=== PATIENT | female | born 1955 | race Caucasian/White ===

== ENCOUNTER 2018-08-06 11:20 | Outpatient (CLI) | payer BC, SELFPAY ==
--- NOTE | 2018-08-06 11:49 | DI.MAMMO_ITS ---
SYMPTOM/DIAGNOSIS: SCREENING, Z12.31 MAMMOGRAMS: Mammograms were interpreted according to the usual protocol including computer analysis with CAD system, tomosynthesis and C view imaging. Comparison is made with prior examinations. Breast density, category B. There has been interval decrease in size of the cyst seen in the retroareolar region of the left breast. The lesion measures 1.5 cm. in maximum diameter compared with 3.3 cm. on the prior examination. No suspicious masses or microcalcifications are seen. The skin and axilla are unremarkable. IMPRESSION: No evidence for malignancy. Yearly mammography is recommended. Category 2B. MQSA ASSESSMENT OF FINDINGS: Negative with benign findings. Category 2. Patient will receive a letter notifying them of these results. BI-RADS category B. There are scattered areas of fibroglandular density.
[2018-08-06 12:15] LABS: HCT 38.8 % (36.0-46.0); HGB 12.9 g/dL (12.0-15.5); Mean Corp. HGB Concentration 33.2 g/dL (32.0-36.0); Mean Corpuscular Hemoglobin 28.7 pg (27.0-33.0); Mean Corpuscular Volume 86.2 fL (80-95); Mean Platelet Volume 12.8 fL (8.0-11.0); Platelet Count 179 x1000/uL (130-400); RBC Distribution Width 13.2 % (11.7-14.6); White Blood Cell Count 5.78 k/cumm (4.4-10.8)
[2018-08-06 13:11] LABS: ALT 20 U/L (12-78); AST 20 U/L (15-37); Alkaline Phosphatase 57 U/L (46-116); Anion Gap 7.6 mmol/L (3-11); BUN 15 mg/dL (7-18); Bilirubin, Total 0.5 mg/dL (0.2-1.0); CO2 29.4 mmol/L (21.0-32.0); CREATININE 0.58 mg/dL (0.55-1.02); Calcium 9.1 mg/dL (8.5-10.1); Chloride 103 mmol/L (98-107); Cholesterol 234 mg/dL (50-200); Glucose 104 mg/dL (70-100); HDL Cholesterol 100 mg/dL (40-60); LDL CHOLESTEROL 121 mg/dL (<100); Sodium 140 mmol/L (136-145); Total Protein 7.1 g/dL (6.4-8.2); Triglyceride 49 mg/dL (30-150)
[2018-08-06 13:33] LABS: Vitamin D 25 Total 47.4 ng/ml (30-100)
[2018-08-07 09:52] LABS: Hepatitis C Ab w Rflx HCV PCR Negative (NEGAT)
[2018-08-07 11:26] LABS: HIV-1/2 Ag & Ab Screen Negative (NEGAT)
[2018-08-07 14:14] LABS: Parathyroid Hormone,Intact 30 pg/ml (19-88)
== END 2018-08-06 11:40 ==
PROVIDERS: PCP Internal Medicine; Visit Provider Internal Medicine
DX: Z12.31 Encounter for screening mammogram for malignant neoplasm of breast (principal); N60.02 Solitary cyst of left breast; M81.0 Age-related osteoporosis without current pathological fracture; Z11.4 Encounter for screening for human immunodeficiency virus [HIV]; Z11.59 Encounter for screening for other viral diseases; Z01.84 Encounter for antibody response examination; I10 Essential (primary) hypertension
CPT/HCPCS: 36415; 77063; 77067; 80053; 80061; 82306; 83721; 85027; 86803; 87389; 83970

== ENCOUNTER 2019-08-28 01:27 | Outpatient (CLI) | payer BC, SELFPAY ==
--- NOTE | 2019-08-28 08:37 | DI.MAMMO_ITS ---
EXAM: MAMMO SCREENING CLINICAL HISTORY: screening, Z12.39. TECHNIQUE: Mammograms were interpreted according to the usual protocol including computer analysis w [employer] CAD system, tomosynthesis and C-view imaging. FINDINGS: The breast tissue is of moderate radiodensity. There is no evidence of a mass. There are no suspiciou s calcifications and there has been no significant interval change when compared with prior images. Patient is status post breast biopsy, scarring is identified. IMPRESSION: No evidence of malignancy, category 2, yearly screening mammography is recommended. BI-RADS category B. BI-RADS Cat 2 - Benign Findings. Breast Density - Category B - Scattered areas of fibroglandular density.
== END 2019-08-28 01:47 ==
PROVIDERS: PCP Internal Medicine; Visit Provider Internal Medicine
DX: Z12.31 Encounter for screening mammogram for malignant neoplasm of breast (principal); Z98.890 Other specified postprocedural states
CPT/HCPCS: 77063; 77067

== ENCOUNTER 2020-07-21 13:49 | Outpatient (REF) | payer BC, SELFPAY ==
[2020-07-21 19:09] LABS: BUN 14 mg/dL (7-18); CREATININE 0.48 mg/dL (0.55-1.02); Calcium 8.9 mg/dL (8.5-10.1); Calculated LDL 111 mg/dL (<100); Chloride 106 mmol/L (98-107); Cholesterol 217 mg/dL (<200); Glucose 93 mg/dL (74-106); HDL Cholesterol 101 mg/dL (40-60); Potassium 4.1 mmol/L (3.5-5.1); Sodium 142 mmol/L (136-145); Triglyceride 28 mg/dL (<150)
== END 2020-07-21 14:09 ==
LOC: LBN 13:49
PROVIDERS: PCP Internal Medicine; Visit Provider Internal Medicine
DX: E78.00 Pure hypercholesterolemia, unspecified (principal); I10 Essential (primary) hypertension
CPT/HCPCS: 80048; 80061

== ENCOUNTER 2021-05-27 02:03 | Outpatient (CLI) | payer BC, SELFPAY ==
--- NOTE | 2021-05-27 08:00 | DI.CT_ITS ---
Exam(s) CT HEAD WO EXAM: CT HEAD WO CLINICAL HISTORY: assess head injury,CLOSED HEAD INJURY,S09.90XA. TECHNIQUE: Imaging Protocol: Axial computed tomography images with coronal and sagittal reformatted images were created and reviewed COMPARISON: No exams were available for comparison FINDINGS: Ventricles and Extra axial spaces: Normal in size and morphology for the patient's age. Hemorrhage: None. Cerebral parenchyma: Normal. Midline shift: None. Brainstem/Cerebellum: Normal. Calvarium: Normal. Visualized Paranasal sinuses/Mastoids: Clear. Soft Tissues: Unremarkable. IMPRESSION: No acute intracranial process. RADIATION DOSE DELIVERED: 607.29mGy.cm Total DLP DATA REPOSITORY: All CT scans at this facility are submitted to the National Radiology Data Registry (NRDR) Dose Index Registry (DIR) with the [employer] (ACR). RADIATION OPTIMIZATION: All CT scans at this facility use at least one of these dose optimization te chniques: automated exposure control; mA and/or kV adjustment per patient size (includes targeted exa ms where dose is matched to clinical indication); or iterative reconstruction.
--- NOTE | 2021-05-27 08:07 | DI.RAD_ITS ---
Exam(s) XR CERVICAL SPINE COMP 4-5V EXAM: XR CERVICAL SPINE COMP 4-5V CLINICAL HISTORY: assess neck injury; r/o neck fracture,CLOSED HEAD INJURY,S09.90XA. TECHNIQUE: 2D digital imaging was performed. COMPARISON: No exams were available for comparison FINDINGS: BONES: No fracture or destructive lesion. Vertebral bodies are unremarkable. DISKS: There is moderate narrowing of the C5-6 disc space and mild narrowing of the C6-7 disc space. Endplate osteophytes are seen at these levels. There is right-sided neural foraminal narrowing. Th e remaining intervertebral disc spaces are maintained. ALIGNMENT: Cervical spinal alignment is within normal limits. The odontoid and atlantoaxial articulat ions are normal. SOFT TISSUE: Normal. The lung apices are clear. IMPRESSION: No evidence of fracture. Degenerative disc changes C5-6 and C6-7. DATA REPOSITORY: RADIATION DOSE DELIVERED:
== END 2021-05-27 02:23 ==
PROVIDERS: PCP Internal Medicine; Visit Provider Student in an Organized Health Care Education/Training Program
DX: S09.90XA Unspecified injury of head, initial encounter (principal); M47.812 Spondylosis without myelopathy or radiculopathy, cervical region; X58.XXXA Exposure to other specified factors, initial encounter
CPT/HCPCS: 70450; 72050

== ENCOUNTER 2021-06-29 03:42 | Outpatient (CLI) | payer BC, SELFPAY ==
[2021-06-29 15:15] LABS: Anion Gap 10.4 mmol/L (3-11); BUN 15 mg/dL (7-18); CO2 27.6 mmol/L (21.0-32.0); CREATININE 0.8 mg/dL (0.55-1.02); Calcium 8.9 mg/dL (8.5-10.1); Calculated LDL 109 mg/dL (<100); Chloride 104 mmol/L (98-107); Cholesterol 217 mg/dL (<200); Glucose 134 mg/dL (74-106); HDL Cholesterol 96 mg/dL (40-60); Sodium 142 mmol/L (136-145); Triglyceride 62 mg/dL (<150)
== END 2021-06-29 03:43 | disposition home or self-care (01) ==
PROVIDERS: PCP Internal Medicine; Visit Provider Internal Medicine
DX: E78.00 Pure hypercholesterolemia, unspecified (principal); I10 Essential (primary) hypertension
CPT/HCPCS: 36415; 80048; 80061

== ENCOUNTER → 2022-07-08 00:22 | Outpatient (CLI) | payer MEDICARE, OTHER, SELFPAY ==
--- NOTE | 2022-07-08 11:27 | DI.MAMMO_ITS ---
Exam(s) MAMMO SCREENING EXAM: MAMMO SCREENING CLINICAL HISTORY: screening,z12.39 TECHNIQUE: Mammograms were interpreted according to the usual protocol including computer analysis w [employer] CAD system, tomosynthesis and C-view imaging. COMPARISON: 2017 through 2019 FINDINGS: The breasts are composed of scattered fibroglandular densities, Breast Density category B. There has been further decrease in size of the previously noted nodule in the subareolar left breast. Patient states previous negative biopsy. No new masses or suspicious calcifications are seen in ei ther breast. No skin thickening or abnormal axillary lymph nodes are seen. There has been no significant change from prior exams. IMPRESSION: BI-RADS Cat 2 - Benign Findings Yearly screening mammography is recommended. Breast Density - Category B, scattered fibroglandular densities. A negative radiographic report should not delay biopsy if a dominant or clinically suspicious mass is present. Up to ten percent of cancers are not identified on mammography. A negative report may reinforce clinical impression. Adenosis and dense breasts may obscure an underlying neoplasm. False positive reports average 6 to 10%. Patient will receive a letter notifying them of these results.
== END ==
PROVIDERS: PCP Internal Medicine; Visit Provider Internal Medicine
DX: Z12.31 Encounter for screening mammogram for malignant neoplasm of breast
CPT/HCPCS: 77063; 77067

== ENCOUNTER → 2022-08-19 00:53 | Outpatient (CLI) | payer MEDICARE, OTHER, SELFPAY ==
--- NOTE | 2022-08-19 10:53 | DI.DEXA_ITS ---
Exam(s) XR DEXA BONE DENSITY W/WO BOB EXAM: XR DEXA BONE DENSITY W/WO BOB CLINICAL HISTORY: F/U osteoporosis,M81.0 TECHNIQUE: COMPARISON: No exams were available for comparison FINDINGS: DEXA scan was performed according to the usual protocol. Please see the accompanying data sheets. F indings for left hip scanning are T-score -2.1 with left femoral neck T-score -1.6. Prior examinatio n of February 2018 showed left hip T-score -2.1. Findings for lumbar spine scanning are T-score -3.0. Prior examination of 2018 showed lumbar T-score -2.7. Left forearm scanning shows T-score -1.1, prior examination of 2018 showed forearm T-score -1.5. IMPRESSION: Measurements are consistent with osteoporosis according to the WHO criteria. The lateral vertebral s canogram shows no evidence of a vertebral compression fracture. RADIATION DOSE DELIVERED: Total DLP
== END ==
PROVIDERS: PCP Internal Medicine; Visit Provider Internal Medicine
DX: M81.0 Age-related osteoporosis without current pathological fracture (principal); Z13.820 Encounter for screening for osteoporosis
CPT/HCPCS: 77080

== ENCOUNTER 2022-09-11 20:01 | Emergency (ER) | payer MEDICARE, OTHER, SELFPAY ==
--- NOTE | 2022-09-11 20:00 | DI.RAD_ITS ---
Exam(s) XR KNEE RT 3V AP,LAT,LAVON EXAM: XR KNEE RT 3V AP,LAT,LAVON CLINICAL HISTORY: Fall, R/O fracture. TECHNIQUE: 2D digital imaging was performed. Three views. COMPARISON: No exams were available for comparison FINDINGS: BONES: A minimally displaced fracture at the inferior pole of the patella. No additional fractures i dentified. No bony destructive lesion is seen. JOINTS: Joint spaces are maintained. A joint effusion is seen. SOFT TISSUE: Anterior soft tissue swelling. IMPRESSION: Nondisplaced fracture at the inferior patella. DATA REPOSITORY: RADIATION DOSE DELIVERED:
[2022-09-11 20:05] VITALS: BP 146/90; PULSE 70; RESP 18; TEMP 36.1; O2SAT 98
--- NOTE | 2022-09-11 20:09 | ED.GENADUL_ITS ---
Discharge Plan Disposition Patient Disposition: HOME Condition: Stable Discharge Details Clinical Impression: Closed fracture of right patella Primary Care Provider: Monica Olivera ED Provider: Tawana Borden Home Meds and New Rx's Prescriptions: Continued cholecalciferol (vitamin D3) 2,000 unit capsule 2,000 unit PO DAILY valsartan-hydrochlorothiazide 80-12.5 mg tablet 1 tab PO DAILY Qty: 90 3RF ibuprofen 200 MG tablet 3 tab PO PRN triamcinolone acetonide 0.1 % ointment 1 applic topical BID PRN (Reason: eczema) Qty: 80 0RF Rx Instructions: Apply to hands BID prn eczema Caltrate 600-D Plus Minerals 1 EACH tablet 1 ea PO DAILY Discharge Instructions Instructions: Patellar Fracture (ED) Additional Instructions: The x-ray shows a fracture to your patella or your kneecap. Please wear the knee immobilizer until your follow-up appointment with orthopedics. Use the crutches as needed. You may bear weight as tolerated. Please follow-up with orthopedics within the next 1 to 2 weeks their office should call you for a follow-up appointment. If you do not hear from them in the next few days please call. Rest, ice, compression and elevation. Keep the knee immobilizer on while awake and while up and moving around. He may take it off when resting. Please take Tylenol or Ibuprofen with food every 4-6 hours as needed for pain and swelling. Referrals: Saw Bello MD [ [facility] STAFF PHYSICIAN] - 1 week Medical Decision Making 67-year-old female presents to the ER with a chief complaint of mechanical fall and right knee injury just prior to arrival. Patient states that she was outside and tripped on her brick walkway falling forward landing on her right knee. She has a superficial abrasion noted to her right knee, she is able to bend actively move her leg however she does have some pain with weightbearing. X-ray ordered of right knee, ice pack and Tylenol. I did inquire about patient's right hip but she reports it is not hurting to limit further imaging at this time. X-rays show a inferior fracture of patella minimally displaced. I did discuss this with the orthopedic surgeon on-call Dr. Bello recommends knee immobilizer and follow-up in the clinic. Patient was placed in a knee immobilizer and given crutches. I did discuss home care and follow-up. She verbalizes understanding. This text was generated using [employer] dictation system, please disregard any oddities of phrase or misspellings. Imaging Data Radiologic Study: Imaging: X-Ray Radiologist's impression: Imaging protocol: Radiologic exam of the Right knee. Views: 3 views. COMPARISON: No relevant prior studies available. FINDINGS: Bones/joints: Inferior patellar fracture without displacement. Degenerative changes in the superior portion of the patella. Small joint effusion suspected Soft tissues: Prepatellar swelling IMPRESSION: Inferior patellar fracture without displacement HPI General Mode of arrival: ambulatory . Date/Time Provider Initiated Documentation: 09/11/22 20:01 . Limitations to Documentation: no limitations . Information obtained by: patient, family, RN notes reviewed and old records reviewed . HPI Narrative: 67-year-old female presents to the ER with a chief complaint of mechanical fall and right knee injury just prior to arrival. Patient states that she was outside and tripped on her brick walkway falling forward landing on her right knee. She has a superficial abrasion noted to her right knee, she is able to bend actively move her leg however she does have some pain with weightbearing. She reports that she has continued nausea after the fall. She denies hitting her head no neck pain no back pain she did hit her right hip but reports that it is no longer hurting. She does have some tenderness with palpation to the patella. No other significant injuries or complaints. Related Data Home Medications Medication Instructions Recorded Confirmed ibuprofen 200 mg tablet 3 tab PO PRN 04/17/13 09/11/22 calcium 600 mg-D3 800 unit-mag11 1 ea PO DAILY 08/06/13 09/11/22 50 py-iqfj-bftclx-aamir-s.borat tablet (Caltrate 600-D Plus Minerals) cholecalciferol (vitamin D3) 50 2,000 unit PO DAILY 07/30/19 09/11/22 mcg (2,000 unit) capsule triamcinolone acetonide 0.1 % 1 applic topical BID PRN eczema 09/14/21 09/11/22 topical ointment #80 grams valsartan 80 1 tab PO DAILY #90 tabs 11/16/21 09/11/22 mg-hydrochlorothiazide 12.5 mg tablet Previous Rx's Medication Instructions Recorded triamcinolone acetonide 0.1 % 1 applic topical BID PRN eczema 09/14/21 topical ointment #80 grams valsartan 80 1 tab PO DAILY #90 tabs 11/16/21 mg-hydrochlorothiazide 12.5 mg tablet Allergies Allergy/AdvReac Type Severity Reaction Status Date / Time erythromycin base AdvReac Mild HEARTBURN Verified 09/11/22 20:09 General Stated Complaint: Orthopedic VALENTIN: 4 Review of Systems All systems reviewed & are unremarkable except as noted in HPI and below Musculoskeletal Musculoskeletal: Reports as per HPI and Reports arthralgias PFSH All Active Problems (Updated 09/11/22 @ 20:50 by Tawana Borden NP) Closed fracture of right patella (Acute) SARS-CoV-2 positive (Acute ~05/18/22) Internal impingement of right shoulder (Acute) Brachial (cervical) neuritis (Acute) Caregiver burden (Acute) Hypertension (Acute 04/08/14) Allergic rhinitis, cause unspecified (Acute 05/13/13) Conductive hearing loss, external ear (Acute 11/27/14) Primary localized osteoarthritis of pelvic region and thigh (Acute 05/13/13) Osteoporosis (Acute 02/22/18) DEXA 02/22/18 & 2021- L hip T score -2.1; L femoral neck T score -2.2; lumbar spine T score -2.7; L forearm T score -1.5 Medical History Dermatofibroma (06/18/18) Eczema (06/18/18) Impacted cerumen (11/27/14) Left breast mass (03/29/17) Seborrheic keratoses (06/18/18) Surgical History Biopsy of breast (04/12/17) Dr Akbar- neg for malignancy Colonoscopy - IV Sedation (08/06/13) Trigger finger rgt fifth (08/05/03) Family History Mother Hypertensive disorder, systemic arterial Stroke stroke age 51 and again in 70's Father Alcohol abuse Heart disease Sister Asthma Brother Asthma Social History Smoking/Tobacco Use Status: Former Tobacco Use Smoking risk assessment performed?: Yes Drug use: Never Substance use type: does not use Housing: house Number of Children: 2 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 Skin: Warm and Dry HEENT: Head: No palpable deformities, Normocephalic Eyes: Pupils PERRLA, EOM's intact. No periorbital eccymosis or step off Ears: Canal patent. Tympanic membranes are clear . No franco's sign, no hemptympanum. Nose/Face: Atraumatic. Facial bones nontender to palpation and stable with manipulation. Mouth/Throat: No intraoral trauma. Teeth and mandible are intact. Neck: No midline tenderness, no step off, no deformity to palpation of C-spine. Trachea midline. Chest: No surface trauma. Nontender without crepitus or deformity. Lungs clear to ausculatation bilaterally. Heart: RRR, no rubs, murmurs or gallop. Abdomen: No abrasions, ecchymosis, or surface trauma. Nondistended. Nontender to palpation no guarding, rebound, or rigidity. Pelvis: Nontender to palpation and stable to compression. Femoral pulses strong and equal Extremities: Superficial abrasion noted to the right anterior knee, tenderness noted to the knee joint see below. Sensation intact. Peripheral pulses intact and equal. Neuro: ANO x4, GCS 15, cranial nerves II through XII intact. Motor and sensory exam nonfocal. Reflexes are symmetric. Extrem General: normal to inspection Right lower extremity: knee Details: abnormal to inspection, tenderness Location: of the patella, of the pre-patellar area and of the infrapatellar area, swelling, normal ROM (slightly decreased but able to extend and flex without difficulty) and abrasion (Anterior mid patella); no foreign bodies and no penetrating wound and lower leg Details: normal to inspection Course Vital Signs Vital signs: Vital Signs Temperature 36.1 C L 10/23/22 20:05 Pulse 70 09/11/22 20:05 Respiratory Rate 18 09/11/22 20:05 Blood Pressure 146/90 H 09/11/22 20:05 Pulse Oximetry 98 09/11/22 20:05 Temperature 36.1 C L 09/11/22 20:05 Temperature Source Tympanic 09/11/22 20:05 Pulse 70 09/11/22 20:05 Respiratory Rate 18 09/11/22 20:05 Blood Pressure 146/90 H 09/11/22 20:05 Blood Pressure Position Sitting 09/11/22 20:05 Pulse Oximetry 98 09/11/22 20:05 Oxygen Delivery Method Room Air 09/11/22 20:05 Oxygen Flow Rate 0 09/11/22 20:05 Pain Level 10 09/11/22 20:05
[2022-09-11] MEDS: Acetaminophen 500 MG TAB PO (20:16)
--- NOTE | 2022-09-11 20:36 | DI.VRAD_ITS ---
PROCEDURE INFORMATION: Exam: XR Right Knee Exam date and time: 09/11/2022 8:23 PM Age: 67 years old Clinical indication: Injury or trauma; Fall; Blunt trauma; Knee; Right; Injury details: 09/11/22 TECHNIQUE: Imaging protocol: Radiologic exam of the Right knee. Views: 3 views. COMPARISON: No relevant prior studies available. FINDINGS: Bones/joints: Inferior patellar fracture without displacement. Degenerative changes in the superior portion of the patella. Small joint effusion suspected Soft tissues: Prepatellar swelling IMPRESSION: Inferior patellar fracture without displacement Dictated and Authenticated by: Marcell Sandoval MD. Ordering:SIVAN Gilliam MD
[2022-09-11] MEDS: Bacitracin 1 PACKET (20:55)
== END 2022-09-11 21:16 | disposition home or self-care (01) ==
PROVIDERS: Emergency Provider Registered Nurse Emergency; PCP Internal Medicine
DX: S82.001A Unspecified fracture of right patella, initial encounter for closed fracture (principal); W18.09XA Striking against other object with subsequent fall, initial encounter; Y93.01 Activity, walking, marching and hiking; Y92.89 Other specified places as the place of occurrence of the external cause
CPT/HCPCS: 73562; 99283; 99284

== ENCOUNTER 2022-09-16 10:05 | Outpatient (CLI) | payer MEDICARE, OTHER, SELFPAY ==
--- NOTE | 2022-09-16 09:15 | DI.RAD_ITS ---
Exam(s) XR KNEE RT 2V AP,LAT EXAM: XR KNEE RT 2V AP,LAT CLINICAL HISTORY: R PATELLA FRACTURE. TECHNIQUE: 2D digital imaging was performed of the right knee. Two views obtained. AP and lateral views were obtained. COMPARISON: CR,XR XR KNEE RT 3V AP,LAT,LAVON from 09/11/2022 FINDINGS: BONES: There has been no change in alignment of the fracture involving the inferior pole of the right patella. No callus formation is seen about the fracture. No bony destructive lesion is seen. There is a small enthesophyte at the superior patella. JOINTS: The knee is normally aligned. There has been an interview decrease in size of the joint effus ion. SOFT TISSUE: Normal. IMPRESSION: Stable patellar fracture. DATA REPOSITORY: RADIATION DOSE DELIVERED:
== END 2022-09-16 10:06 | disposition home or self-care (01) ==
LOC: DIORS 10:05
PROVIDERS: PCP Internal Medicine; Referring Provider Internal Medicine; Visit Provider Student in an Organized Health Care Education/Training Program
DX: S82.001A Unspecified fracture of right patella, initial encounter for closed fracture (principal); W18.09XA Striking against other object with subsequent fall, initial encounter
CPT/HCPCS: 99213; 73560

== ENCOUNTER 2022-10-07 10:20 | Outpatient (CLI) | payer MEDICARE, OTHER, SELFPAY ==
--- NOTE | 2022-10-07 10:15 | DI.RAD_ITS ---
Exam(s) XR KNEE RT 2V AP,LAT EXAM: XR KNEE RT 2V AP,LAT CLINICAL HISTORY: R patella fx. TECHNIQUE: 2D digital imaging was performed. COMPARISON: CR XR KNEE RT 2V AP,LAT from 09/16/2022 FINDINGS: Two views-AP and lateral: There has been further healing at the fracture site in the inferior pole region of the patella. Frac ture line is still visible on the lateral view. No additional fractures evident. No joint space shanika rowing. Previously present joint effusion has decreased in size. IMPRESSION: Healing patellar fracture. DATA REPOSITORY: RADIATION DOSE DELIVERED:
== END 2022-10-07 10:21 | disposition home or self-care (01) ==
LOC: DIORS 10:21
PROVIDERS: PCP Internal Medicine; Referring Provider Internal Medicine; Visit Provider Physician Assistant
DX: S82.001A Unspecified fracture of right patella, initial encounter for closed fracture (principal); X58.XXXA Exposure to other specified factors, initial encounter
CPT/HCPCS: 99213; 73560

== ENCOUNTER 2022-11-07 10:59 | Outpatient (CLI) | payer MEDICARE, OTHER, SELFPAY ==
--- NOTE | 2022-11-07 10:45 | DI.RAD_ITS ---
Exam(s) XR KNEE RT 2V AP,LAT EXAM: XR KNEE RT 2V AP,LAT INDICATION: f/u R patella frx. COMPARISON: CR XR KNEE RT 2V AP,LAT from 10/07/2022 TECHNIQUE: 2D digital imaging was performed. Two views. FINDINGS: There has been continued healing at the fracture at the lower pole of the patella. No new findings. DATA REPOSITORY: RADIATION DOSE DELIVERED:
== END 2022-11-07 11:00 | disposition home or self-care (01) ==
LOC: DIORS 11:00
PROVIDERS: PCP Internal Medicine; Referring Provider Internal Medicine; Visit Provider Student in an Organized Health Care Education/Training Program
DX: S82.001D Unspecified fracture of right patella, subsequent encounter for closed fracture with routine healing (principal); X58.XXXD Exposure to other specified factors, subsequent encounter; M16.11 Unilateral primary osteoarthritis, right hip; M16.12 Unilateral primary osteoarthritis, left hip
CPT/HCPCS: 99214; 73560

== ENCOUNTER 2023-01-24 03:27 | Outpatient (CLI) | payer MEDICARE, OTHER, SELFPAY ==
[2023-01-24 09:29] LABS: Anion Gap 10.5 mmol/L (3-11); BUN 18 mg/dL (7-18); CO2 27.5 mmol/L (21.0-32.0); CREATININE 0.6 mg/dL (0.55-1.02); Calcium 9.2 mg/dL (8.5-10.1); Calculated LDL 122 mg/dL (<100); Chloride 103 mmol/L (98-107); Cholesterol 232 mg/dL (<200); Estimated GFR 98.93 (mL/min/1.73m2); Glucose 105 mg/dL (74-106); HDL Cholesterol 102 mg/dL (40-60); Potassium 3.7 mmol/L (3.5-5.1); Sodium 141 mmol/L (136-145); Triglyceride 42 mg/dL (<150)
[2023-01-24 10:17] LABS: Vitamin D 25 Total 63.7 ng/mL (30-100)
== END 2023-01-24 03:28 | disposition home or self-care (01) ==
LOC: LBO 03:27
PROVIDERS: PCP Nurse Practitioner Adult Health; Referring Provider Nurse Practitioner Adult Health; Visit Provider Nurse Practitioner Adult Health
DX: I10 Essential (primary) hypertension (principal); M81.0 Age-related osteoporosis without current pathological fracture
CPT/HCPCS: 36415; 80048; 80061; 82306

== ENCOUNTER 2023-06-28 14:48 | Emergency (ER) | payer MEDICARE, OTHER, SELFPAY ==
[2023-06-28 14:54] VITALS: BP 175/88; PULSE 83; RESP 18; TEMP 36.6; O2SAT 97
--- NOTE | 2023-06-28 15:15 | DI.CT_ITS ---
Exam(s) CT HEAD WO EXAM: CT HEAD WO CLINICAL HISTORY: NICHOLE, r/o bleed/mass. TECHNIQUE: Imaging Protocol: Axial computed tomography images with coronal and sagittal reformatted images were created and reviewed COMPARISON: CT CT HEAD WO from 05/27/2021 FINDINGS: Ventricles and Extra axial spaces: Normal in size and morphology for the patient's age. Hemorrhage: None. Cerebral parenchyma: No evidence of acute infarct or mass. Mild atrophy. Mild patchy areas of hypo density in the white matter consistent with microvascular changes. Stable from prior exam. Midline shift: None. Brainstem/Cerebellum: Normal. Calvarium: Normal. Visualized Paranasal sinuses/Mastoids: Mild mucous retention both maxillary sinuses. Ethmoid and sph enoid mucosal thickening. Mastoids clear. Soft Tissues: Unremarkable. IMPRESSION: No acute intracranial process. RADIATION DOSE DELIVERED: 609mGy.cm Total DLP DATA REPOSITORY: All CT scans at this facility are submitted to the National Radiology Data Registry (NRDR) Dose Index Registry (DIR) with the [employer] (ACR). RADIATION OPTIMIZATION: All CT scans at this facility use at least one of these dose optimization te chniques: automated exposure control; mA and/or kV adjustment per patient size (includes targeted exa ms where dose is matched to clinical indication); or iterative reconstruction.
[2023-06-28 15:32] LABS: Abs Immature Grans 0.04 10^3/uL (0.0-0.06); Absolute Basophil Count 0.02 10^3/uL (0.0-0.2); Absolute Eosinophil Count 0.08 10^3/uL (0.0-0.7); Absolute Lymphocyte Count 0.96 10^3/uL (1.2-3.4); Absolute Monocyte Count 0.49 10^3/uL (0.1-0.8); Absolute Neutrophil Count 8.08 10^3/uL (1.2-6.7); Basophils % 0.2; Eosinophils % 0.8; HCT 39.9 % (36.0-46.0); HGB 13.2 g/dL (11.2-15.7); Immature Grans % 0.4; Lymphocytes % 9.9; MCH 27.9 pg (27.0-33.0); MCHC 33.1 % (32.0-36.0); MCV 84 fL (80-95); MPV 12.5 fL (8.0-11.0); Monocytes % 5.1; Neutrophils % 83.6; Platelet Count 191 10^3/uL (130-400); RBC 4.73 10^6/uL (3.93-5.22); RDW 12.7 % (11.7-14.6); RDW-SD 39.3 fL; WBC 9.67 10^3/uL (4.4-10.8)
--- NOTE | 2023-06-28 15:37 | W.ED.GENAD ---
Discharge Plan Disposition Patient Disposition: Home Condition: Good Discharge Details Clinical Impression: Nausea and vomiting, Dehydration Primary Care Provider: Jacquelin Rice ED Provider: Richardson Young Home Meds and New Rx's Prescriptions: No Action cholecalciferol (vitamin D3) 2,000 unit capsule 2,000 unit PO DAILY tacrolimus 0.1 % ointment 1 applic topical BID PRN (Reason: darrick-orbital dermatitis) Qty: 30 0RF Rx Instructions: Per dermatology--use sparingly, thin layer for shortest duration ibuprofen 200 MG tablet 3 tab PO PRN valsartan-hydrochlorothiazide 80-12.5 mg tablet 1 tab PO DAILY Qty: 90 3RF triamcinolone acetonide 0.1 % ointment 1 applic topical BID PRN (Reason: eczema) Qty: 80 0RF Rx Instructions: Apply to hands BID prn eczema Caltrate 600-D Plus Minerals 1 EACH tablet 1 ea PO DAILY acetaminophen 325 mg Tablet 650 mg PO PRN PRN Discharge Instructions Instructions: Dehydration (ED), Acute Nausea and Vomiting (ED) Additional Instructions: At this time your workup is returned and is reassuring. I do suspect dehydration was a component of your symptoms, likely brought about by a viral etiology. Thankfully at this time your symptoms are not consistent with meningitis stroke or bleed in the brain. There is no evidence of heart attack. Please take the Zofran as needed for nausea. Continue to drink plenty of fluids to stay well-hydrated. If you notice any worsening of your symptoms, or any new symptoms such as vomiting, diarrhea, fever, chills, shortness of breath, chest pain, numbness, weakness, or fainting , please return immediately to the emergency department for reevaluation. Please follow up with your primary care provider as soon as possible for reassessment and reevaluation. As always, it was a pleasure participating in your medical care today. Referrals: Jacquelin Rice, DISPLAY SPECIALIST [Primary Care Provider] - Medical Decision Making This is a very pleasant 67-year-old female with a past medical history of hypertension who presents today for evaluation of headache nausea runny nose congestion mild cough. Patient states that the symptoms have been present for the last 2 to 3 days, initially started as runny nose and congestion, which then transition to cough, and mild generalized unremitting headache. The patient denies any headache red flags of worst headache of life, thunderclap headache, neck pain, fever, chills, concerning family history of polycystic kidney disease, Marfan syndrome, Rafaela-Danlos syndrome, abdominal aortic aneurysm, aortic dissection, or intracranial aneurysm. Patient states that the cough is mild. She denies any blood in her vomit or her her her sputum. She denies any neck pain. She denies any shortness of breath or chest pain. She denies any numbness tingling or weakness. She denies any double vision. No other complaints at this time. She did take a home COVID test and this was negative. She has had no diarrhea. She has been throwing up multiple times throughout the day. She denies any abdominal pain or tenderness whatsoever though. Exam demonstrates a well-appearing female, vital signs stable. Heart rate normal. Notably dry mucous membranes. Nontender abdomen. No nuchal rigidity or meningeal signs. Neurologic assessment normal. Symptoms appear inconsistent with massive bleed or hemorrhage or stroke. Concern does include mass, but this is less likely. Chief diagnosis is likely viral etiology causing nausea and dehydration. Will check for pancreatitis, electrolyte abnormality, COVID and flu, get a scan of her head, chest x-ray to rule out pneumonia, monitor closely and reassess. 5:10 PM Laboratory workup has returned notably unremarkable. No white count bandemia. Electrolytes are normal. Renal function normal. Lipase normal. Thyroid function normal. COVID and flu are negative. CT scan of the head negative for acute process, chest x-ray negative for evidence of pneumonia. On reassessment after medications patient has near complete resolution of her headache. She feels well. She ambulates well with no focal neurologic deficits. No rotatory or vertical nystagmus. No worst headache of her life. No neck pain or stiffness. Symptoms are clinically inconsistent with significant intracranial bleed, meningitis, or other significant concerning abnormality. With the patient's resolution of her symptoms, reassuring workup, I do feel that discharge is reasonable. Suspect viral etiology that brought about her symptoms. Will do a p.o. trial, with plan for expected discharge if p.o. trial as tolerated 5:48 PM Patient tolerated p.o. well. Troponin and EKG are normal. Patient feels well. Patient will be discharged home. Discussed red flags for which return. I have extensively reviewed the treatment plan and discharge instructions with the patient. I have addressed all patient concerns at this time. The patient was made aware of what symptoms to monitor for that would warrant a return to the emergency department. Discussed the plan with the patient, they demonstrate verbal understanding and agreement with our assessment and plan at this time. The documentation in this chart was dictated using [employer] dictation software. Please excuse any dictation errors. FINDINGS: Ventricles and Extra axial spaces: Normal in size and morphology for the patient's age. Hemorrhage: None. Cerebral parenchyma: No evidence of acute infarct or mass. Mild atrophy. Mild patchy areas of hypodensity in the white matter consistent with microvascular changes. Stable from prior exam. Midline shift: None. Brainstem/Cerebellum: Normal. Calvarium: Normal. Visualized Paranasal sinuses/Mastoids: Mild mucous retention both maxillary sinuses. Ethmoid and sphenoid mucosal thickening. Mastoids clear. Soft Tissues: Unremarkable. IMPRESSION: No acute intracranial process. FINDINGS: MEDIASTINUM: Normal. HEART: Normal. PULMONARY VASCULATURE: Normal. LUNGS: Clear. PLEURAL SPACE: No pleural effusion or pneumothorax. BONE:Within normal limits for the patient's age. OTHER FINDINGS:Normal. IMPRESSION: No acute pulmonary findings. HPI General Date/Time Provider Initiated Documentation: 06/28/23 15:08. HPI Narrative: This is a very pleasant 67-year-old female with a past medical history of hypertension who presents today for evaluation of headache nausea runny nose congestion mild cough. Patient states that the symptoms have been present for the last 2 to 3 days, initially started as runny nose and congestion, which then transition to cough, and mild generalized unremitting headache. The patient denies any headache red flags of worst headache of life, thunderclap headache, neck pain, fever, chills, concerning family history of polycystic kidney disease, Marfan syndrome, Rafaela-Danlos syndrome, abdominal aortic aneurysm, aortic dissection, or intracranial aneurysm. Patient states that the cough is mild. She denies any blood in her vomit or her her her sputum. She denies any neck pain. She denies any shortness of breath or chest pain. She denies any numbness tingling or weakness. She denies any double vision. No other complaints at this time. She did take a home COVID test and this was negative. She has had no diarrhea. She has been throwing up multiple times throughout the day. She denies any abdominal pain or tenderness whatsoever though. Related Data Home Medications Medication Instructions Recorded Confirmed ibuprofen 200 mg tablet 3 tab PO PRN 04/17/13 06/28/23 calcium 600 mg-D3 800 unit-mag11 1 ea PO DAILY 08/06/13 06/28/23 50 ua-ljof-ybhghl-aamir-s.borat tablet (Caltrate 600-D Plus Minerals) cholecalciferol (vitamin D3) 50 2,000 unit PO DAILY 07/30/19 06/28/23 mcg (2,000 unit) capsule valsartan 80 1 tab PO DAILY #90 tabs 11/23/22 06/28/23 mg-hydrochlorothiazide 12.5 mg tablet triamcinolone acetonide 0.1 % 1 applic topical BID PRN eczema 12/22/22 06/28/23 topical ointment #80 grams tacrolimus 0.1 % topical ointment 1 applic topical BID PRN 01/09/23 06/28/23 darrick-orbital dermatitis #30 grams acetaminophen 325 mg tablet 650 mg PO PRN PRN 06/28/23 06/28/23 Previous Rx's Medication Instructions Recorded valsartan 80 1 tab PO DAILY #90 tabs 11/23/22 mg-hydrochlorothiazide 12.5 mg tablet triamcinolone acetonide 0.1 % 1 applic topical BID PRN eczema 12/22/22 topical ointment #80 grams tacrolimus 0.1 % topical ointment 1 applic topical BID PRN 01/09/23 darrick-orbital dermatitis #30 grams Allergies Allergy/AdvReac Type Severity Reaction Status Date / Time erythromycin base AdvReac Mild HEARTBURN Verified 06/28/23 14:57 General Stated Complaint: Nausea/Vomit/Diar VALENTIN: 3 Review of Systems All systems reviewed & are unremarkable except as noted in HPI and below PFSH All Active Problems (Updated 06/28/23 @ 17:13 by Richardson Young DO) Nausea and vomiting (Acute) Dehydration (Acute) Internal impingement of right shoulder (Acute) Brachial (cervical) neuritis (Acute) Caregiver burden (Acute) Hypertension (Acute 04/08/14) Allergic rhinitis, cause unspecified (Acute 05/13/13) Conductive hearing loss, external ear (Acute 11/27/14) Primary localized osteoarthritis of pelvic region and thigh (Acute 05/13/13) Osteoporosis (Acute 02/22/18) DEXA 02/22/18 & 2021- L hip T score -2.1; L femoral neck T score -2.2; lumbar spine T score -2.7; L forearm T score -1.5 Medical History Dermatofibroma (06/18/18) Eczema (06/18/18) Impacted cerumen (11/27/14) Left breast mass (03/29/17) Right patella fracture (09/11/22) SARS-CoV-2 positive (~05/18/22) Seborrheic keratoses (06/18/18) Surgical History Biopsy of breast (04/12/17) Dr Akbar- kailey for malignancy Colonoscopy - IV Sedation (08/06/13) Trigger finger rgt fifth (08/05/03) Family History Mother , Late 80s Hypertensive disorder, systemic arterial Stroke stroke age 51 and again in 70's Vascular dementia Father , CVA & sequella; 1990 ~83yo Alcohol abuse Heart disease Stroke Sister Asthma Brother Asthma Social History Smoking/Tobacco Use Status: Former Tobacco Use Smoking risk assessment performed?: Yes Alcohol Intake: current Alcohol Intake frequency: 0-2 drinks per day Alcohol type: wine Drug use: Never Substance use type: does not use Housing: house Number of Children: 2 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 3.ENT: Atraumatic external nose and ears. Dry MM. Neck: Symmetric, trachea midline, No thyromegaly. Patient demonstrates good movement of cervical neck. There is no nuchal rigidity, no nuchal tenderness. Patient is able to flex the neck without any difficulty or significant pain. Negative Kernig's and Brudzinski sign. 4.CVS: +S1/S2, No murmurs or gallops. Peripheral pulses 2+ and equal in all extremities. Brisk capillary refill in all extremities. 5.RESP: Unlabored respiratory effort. Clear to auscultation bilaterally. No wheezes rales or rhonchi 6.GI: Soft, Nontender/Nondistended, No hepatosplenomegaly. No guarding or rebound. No pain at McBurney's point. Negative Sy sign 7.MSK: Normocephalic/Atraumatic, Extremities w/o deformity or ttp No cyanosis or clubbing, Normal movement of all extremities 8.Skin: Warm, Dry. No rashes or lesions. 9.Neuro: mark up designer II-XII grossly intact. Sensation grossly intact, no focal neurologic deficits. 10.Psych: (AAO) x3. Appropriate mood and affect Course Vital Signs Vital signs: Vital Signs Temperature 36.6 C 06/28/23 14:54 Pulse 83 06/28/23 14:54 Respiratory Rate 18 06/28/23 14:54 Blood Pressure 175/88 H 06/28/23 14:54 Pulse Oximetry 97 06/28/23 14:54 Temperature 36.6 C 06/28/23 14:54 Temperature Source Skin 06/28/23 14:54 Pulse 83 06/28/23 14:54 Respiratory Rate 18 06/28/23 14:54 Respiratory Effort Normal, Non-Labored 06/28/23 15:03 Blood Pressure 175/88 H 06/28/23 14:54 Blood Pressure Position Sitting 06/28/23 14:54 Pulse Oximetry 97 06/28/23 14:54 Oxygen Delivery Method Room Air 06/28/23 14:54 Oxygen Flow Rate 0 06/28/23 14:54 Pain Level 8 06/28/23 14:54
[2023-06-28] MEDS: diphenhydrAMINE 50 MG/ML VIAL 25 MG IVP (15:54)
[2023-06-28] MEDS: Prochlorperazine 10 MG/2 ML VIAL IVP (15:55)
[2023-06-28] MEDS: Ondansetron 4 MG/2 ML VIAL IVP (15:55)
[2023-06-28 15:56] LABS: ALT 18 U/L (14-59); AST 12 U/L (15-37); Albumin 3.8 g/dL (3.4-5.0); Alkaline Phosphatase 58 U/L (46-116); BUN 9 mg/dL (7-18); Bilirubin, Total 0.6 mg/dL (0.2-1.0); CREATININE 0.5 mg/dL (0.55-1.02); Calcium 8.9 mg/dL (8.5-10.1); Chloride 102 mmol/L (98-107); Estimated GFR 103.38 (mL/min/1.73m2); Glucose 117 mg/dL (74-106); Lipase 24 U/L (16-77); Potassium 3.5 mmol/L (3.5-5.1); Sodium 141 mmol/L (136-145); TSH (W/Ref FT4) 1.04 uIU/mL (0.36-3.74); Total Protein 7.4 g/dL (6.4-8.2)
--- NOTE | 2023-06-28 16:10 | DI.RAD_ITS ---
Exam(s) XR CHEST 1V IN DI DEPT EXAM: XR CHEST 1V IN DI DEPT CLINICAL HISTORY: cough, eval for pneumonia TECHNIQUE: 2D digital imaging was performed of the chest. One image was obtained. An AP view was ob tained. COMPARISON: No exams were available for comparison FINDINGS: MEDIASTINUM: Normal. HEART: Normal. PULMONARY VASCULATURE: Normal. LUNGS: Clear. PLEURAL SPACE: No pleural effusion or pneumothorax. BONE:Within normal limits for the patient's age. OTHER FINDINGS:Normal. IMPRESSION: No acute pulmonary findings. DATA REPOSITORY: RADIATION DOSE DELIVERED:
[2023-06-28] MEDS: ACETAMINOPHEN 1,000 MG/100 ML BTL 400 MG IVPB (16:19)
[2023-06-28] MEDS: Normal Saline 1,000 ML 1000 ML IV (16:19)
--- NOTE | 2023-06-28 17:00 | RT.EKG_ITS ---
APPROVED REPORT Exam: Resting ECG Reason for Exam: chest pain Patient Location: E HR:69 bpm ECG Measurements Heart Rate 69 AXIS OK 139 P 80 QRSd 93 QRS 17 QT 422 T 59 QTc 452 Conclusion Sinus rhythm...normal P axis, V-rate 60- 99 Probable left atrial enlargement...P >50mS, <-0.10mV V1 Physician: minimal elevation in V2, no stemi.
[2023-06-28] MEDS: Ondansetron O.D.T. 4 MG TABEF, 3 TABS/BTL PO (17:16)
[2023-06-28 17:38] LABS: Troponin I < 50 ng/L (<or=60)
== END 2023-06-28 18:00 | disposition home or self-care (01) ==
PROVIDERS: Emergency Provider Student in an Organized Health Care Education/Training Program; PCP Nurse Practitioner Adult Health
DX: E86.0 Dehydration (principal); R11.2 Nausea with vomiting, unspecified
CPT/HCPCS: 80053; 83690; 93005; 96361; 96365; 96375; 99285; 70450; 71045; 81003; 84443; 84484; 85025; 93010; 99284; J0131; J0780; J1200; J2405

== ENCOUNTER 2023-07-10 14:52 | Outpatient (CLI) | payer MEDICARE, OTHER, SELFPAY ==
--- NOTE | 2023-07-10 14:30 | DI.RAD_ITS ---
Exam(s) XR HIP PELVIS ADULT BL EXAM: XR HIP PELVIS ADULT BL CLINICAL HISTORY: BILATERAL HIP PAIN. TECHNIQUE: 2D digital imaging was performed of the pelvis and bilateral hips. Three images were obt ained. AP pelvis and lateral views of both hips were obtained. COMPARISON: No exams were available for comparison FINDINGS: BONES: No acute fracture is present. No bony destructive lesion is seen. JOINTS: No dislocation present. Marked degenerative changes are seen in the hips bilaterally characte rized by joint space narrowing and osteophytes. There is a prominent osteophyte at the superior righ t acetabulum. Well corticated osseous densities are also seen adjacent to both acetabuli. SOFT TISSUE: Normal. IMPRESSION: Degenerative changes of the hips bilaterally. DATA REPOSITORY: RADIATION DOSE DELIVERED:
== END 2023-07-10 14:53 | disposition home or self-care (01) ==
LOC: DIORS 14:52
PROVIDERS: PCP Nurse Practitioner Adult Health; Referring Provider Nurse Practitioner Adult Health; Visit Provider Student in an Organized Health Care Education/Training Program
DX: M16.0 Bilateral primary osteoarthritis of hip
CPT/HCPCS: 73521; 99213

== ENCOUNTER → 2023-08-29 00:06 | Outpatient (CLI) | payer MEDICARE, SELFPAY ==
--- NOTE | 2023-08-29 07:45 | DI.MAMMO_ITS ---
Exam(s) MAMMO SCREENING EXAM: MAMMO SCREENING CLINICAL HISTORY: screening,z12.39 TECHNIQUE: Mammograms were interpreted according to the usual protocol including computer analysis w [employer] CAD system, tomosynthesis and C-view imaging. COMPARISON: 2016 through 2021 FINDINGS: The breasts are composed of scattered fibroglandular densities, Breast Density category B. No suspicious masses or suspicious microcalcifications are seen. No skin thickening or abnormal axillary lymph nodes are seen. There has been no significant change from prior exams. IMPRESSION: BI-RADS Category 1, Negative mammogram Yearly screening mammography is recommended. Breast Density - Category B, scattered fibroglandular densities. A negative radiographic report should not delay biopsy if a dominant or clinically suspicious mass is present. Up to ten percent of cancers are not identified on mammography. A negative report may reinforce clinical impression. Adenosis and dense breasts may obscure an underlying neoplasm. False positive reports average 6 to 10%. Patient will receive a letter notifying them of these results.
== END ==
PROVIDERS: PCP Nurse Practitioner Adult Health; Visit Provider Nurse Practitioner Adult Health
DX: Z12.31 Encounter for screening mammogram for malignant neoplasm of breast (principal)
CPT/HCPCS: 77063; 77067

== ENCOUNTER 2024-02-12 05:05 | Outpatient (CLI) | payer MEDICARE, SELFPAY ==
[2024-02-12 14:58] LABS: HCT 40.3 % (36.0-46.0); HGB 13.3 g/dL (11.2-15.7); MCH 28.8 pg (27.0-33.0); MCV 87 fL (80-95); Platelet Count 224 10^3/uL (130-400); RBC 4.62 10^6/uL (3.93-5.22); RDW 12.7 % (11.7-14.6); RDW-SD 40.4 fL; WBC 7.22 10^3/uL (4.4-10.8)
[2024-02-12 16:16] LABS: Anion Gap 7.4 mmol/L (3-11); BUN 19 mg/dL (7-18); CO2 29.6 mmol/L (21.0-32.0); CREATININE 0.8 mg/dL (0.55-1.02); Chloride 102 mmol/L (98-107); Estimated GFR 80.71 (mL/min/1.73m2); Glucose 85 mg/dL (74-106); Potassium 3.5 mmol/L (3.5-5.1); Sodium 139 mmol/L (136-145)
== END 2024-02-12 05:06 | disposition home or self-care (01) ==
LOC: LBO 05:05
PROVIDERS: PCP Nurse Practitioner Adult Health; Visit Provider Student in an Organized Health Care Education/Training Program
DX: M16.0 Bilateral primary osteoarthritis of hip (principal); Z01.818 Encounter for other preprocedural examination
CPT/HCPCS: 36415; 80048; 85027; 86850; 86900; 86901

== ENCOUNTER 2024-02-20 06:04 | Day surgery (SDC) | payer MEDICARE, SELFPAY ==
[2024-02-20] VITALS (9 sets, daily range): BP systolic 95–139; BP diastolic 58–81; PULSE 51–69; RESP 14–16; TEMP 36.1–36.8; O2SAT 96–100; BMI 22.4
[2024-02-20] MEDS: Acetaminophen 500 MG TAB 1000 MG PO (06:32)
[2024-02-20] MEDS: Celecoxib 200 MG CAP 400 MG PO (06:33)
[2024-02-20] MEDS: Lactated Ringers 1,000 ML 80 ML IV (06:46)
--- NOTE | 2024-02-20 06:48 | W.ANESPRE ---
General Info Date of Service Date Performed: 02/20/24 Height: 5 ft 2 in Weight: 55.792 kg Body Mass Index (BMI): 22.4 Surgical Procedure: Operation Date: 02/20/24 08:00 Proposed Procedure Side Surgeon p Hip Total Hip Anterior Bilateral Bilateral Saw eBllo MD Meds Allergies and Home Medications Allergies Allergy/AdvReac Type Severity Reaction Status Date / Time erythromycin base AdvReac Mild HEARTBURN Verified 02/20/24 06:13 Home Medication Medication Instructions Recorded calcium 600 mg-D3 800 unit-mag11 1 ea PO DAILY 08/06/13 50 rl-ghif-hmwqsx-aamir-s.borat tablet (Caltrate 600-D Plus Minerals) cholecalciferol (vitamin D3) 50 2,000 unit PO DAILY 07/30/19 mcg (2,000 unit) capsule triamcinolone acetonide 0.1 % 1 applic topical BID PRN eczema 12/22/22 topical ointment #80 grams tacrolimus 0.1 % topical ointment 1 applic topical BID PRN 01/09/23 darrick-orbital dermatitis #30 grams valsartan 80 1 tab PO DAILY #90 tabs 12/06/23 mg-hydrochlorothiazide 12.5 mg tablet acetaminophen 500 mg tablet 1,000 mg (2 x 500 mg) PO TID #90 02/20/24 tabs aspirin 81 mg tablet,delayed 81 mg PO BID #60 tabs 02/20/24 release celecoxib 200 mg capsule 200 mg PO BID #60 caps 02/20/24 dexamethasone 4 mg tablet 4 mg PO DAILY #2 tabs 02/20/24 oxycodone 5 mg tablet 5 mg PO Q4H PRN pain #20 tabs 02/20/24 pantoprazole 40 mg tablet,delayed 40 mg PO DAILY #30 tabs 02/20/24 release Current Visit Medications: Current Medications Generic Name Dose Route Start Last Admin Trade Name Freq PRN Reason Stop Dose Admin Acetaminophen 1,000 mg 02/20/24 06:00 02/20/24 06:32 Acetaminophen 500 Mg Tab PO 03/20/24 23:59 1,000 mg PREOP BEBE Administration Celecoxib 400 mg 02/20/24 06:00 02/20/24 06:33 Celecoxib 200 Mg Cap PO 03/20/24 23:59 400 mg PREOP BEBE Administration Ringer's Solution 1,000 mls @ 80 mls/hr 02/20/24 06:00 02/20/24 06:46 IV 03/20/24 23:59 80 mls/hr INFUSION BEBE Administration Cefazolin Sodium/Dextrose 2 gm in 50 mls @ 100 mls/hr 02/20/24 06:00 Ancef Duplex IVPB 03/20/24 23:59 PREOP BEBE Tranexamic Acid/Sodium Chloride 1,000 mg in 100 mls @ 600 mls/hr 02/20/24 06:00 IVPB 03/20/24 23:59 PREOP BEBE Tranexamic Acid/Sodium Chloride 1,000 mg in 100 mls @ 600 mls/hr 02/20/24 06:00 IVPB 02/20/24 16:00 PREOP BEBE IV Miscellaneous Supplies 1 each 02/20/24 06:00 Iv Access IV 03/20/24 23:59 DIRECTED BEBE Sodium Chloride 0 ml 02/20/24 06:00 Normal Saline Flush 10 Ml Syr IV 03/20/24 23:59 PRN PRN Sodium Chloride 0 ml 02/20/24 06:00 Normal Saline 10 Ml Vial IJ 03/20/24 23:59 DIRECTED PRN Sterile Water 0 ml 02/20/24 06:00 Water,Injection,Sterile 10 Ml Vial IJ 03/20/24 23:59 DIRECTED PRN PFSH Active Problems Active Problems: Problem Status Onset Code Primary osteoarthritis of both hips M16.0 Internal impingement of right shoulder M75.41 Brachial (cervical) neuritis M54.12 Caregiver burden Z63.6 Hypertension 04/08/14 I10 Allergic rhinitis, cause unspecified 05/13/13 J30.9 Conductive hearing loss, external ear 11/27/14 H90.2 Primary localized osteoarthritis of pelvic region and thigh 05/13/13 M16.10 Osteoporosis 02/22/18 M81.0 Medical History Medical History Dehydration Nausea and vomiting Right patella fracture (09/11/22) SARS-CoV-2 positive (~05/18/22) Dermatofibroma (06/18/18) Eczema (06/18/18) Impacted cerumen (11/27/14) Left breast mass (03/29/17) Seborrheic keratoses (06/18/18) Surgical History Surgical History Trigger finger rgt fifth (08/05/03) Colonoscopy - IV Sedation (08/06/13) Biopsy of breast (04/12/17) Dr Akbar- neg for malignancy Tobacco Smoking/Tobacco Use Status: Former Tobacco Use Passive smoking exposure: No Alcohol Alcohol Intake: current Alcohol intake frequency: 0-2 drinks per day Alcohol type: wine Substance Use Substance use: Never Substance use type: does not use Vital Signs and Lab Results Vital Signs Most Recent Vital Signs in EMR: Most Recent Vital Signs Temp Pulse Resp BP Pulse Ox 36.8 C 65 16 127/72 96 02/20/24 06:17 02/20/24 06:17 02/20/24 06:17 02/20/24 06:17 02/20/24 06:17 Lab Results Blood Type / Crossmatch: Patient ABO/Rh O Positive 02/12/24 Antibody Screen NEGATIVE 02/12/24 Complete Blood Count: White Blood Count 7.22 10^3/uL (4.4-10.8) 02/12/24 14:50 Red Blood Count 4.62 10^6/uL (3.93-5.22) 02/12/24 14:50 Hemoglobin 13.3 g/dL (11.2-15.7) 02/12/24 14:50 Hematocrit 40.3 % (36.0-46.0) 02/12/24 14:50 Platelet Count 224 10^3/uL (130-400) 02/12/24 14:50 Complete Metabolic Panel: Sodium 139 mmol/L (136-145) 02/12/24 14:50 Potassium 3.5 mmol/L (3.5-5.1) 02/12/24 14:50 Chloride 102 mmol/L (98-107) 02/12/24 14:50 Carbon Dioxide 29.6 mmol/L (21.0-32.0) 02/12/24 14:50 BUN 19 mg/dL (7-18) H 02/12/24 14:50 Creatinine 0.8 mg/dL (0.55-1.02) 02/12/24 14:50 Est GFR (CKD-EPI 2020) 80.71 (mL/min/1.73m2) 02/12/24 14:50 Calcium 9.0 mg/dL (8.5-10.1) 02/12/24 14:50 Glucose 85 mg/dL (74-106) 02/12/24 14:50 Liver Function Panel: No Data to Display Coagulation Panel: No Data to Display Cardiac Panel: No Data to Display Arterial Blood Gas: No Data to Display Venous Blood Gas: No Data to Display Pancreas Panel: No Data to Display Thyroid Panel: No Data to Display Infectious Disease: No Data to Display Blood Cultures: No Data to Display Toxicology Panel: No Data to Display Imaging and Studies Imaging and Studies Study information below may be from another EMR and interpreted by another provider. Please see original notes in EMR for more complete details. EKG Summary: 06/28/23: Exam: Resting ECG Reason for Exam: chest pain Patient Location: E HR:69 bpm ECG Measurements Heart Rate 69 AXIS AR 139 P 80 QRSd 93 QRS 17 QT 422 T59 QTc 452 Conclusion Sinus rhythm...normal P axis, V-rate 60- 99 Probable left atrial enlargement...P >50mS, <-0.10mV V1 Physician: minimal elevation in V2, no stemi. I have reviewed and I agree with the emergency room physician's ECG interpretation. Anesthesia Assessment and Plan Anesthesia History Personal History: No History of Anesthesia Complications Family History: No Family History of Anesthesia Complications Exercise Tolerance Exercise Tolerance: Metabolic Equivalents>4 Pertinent Negatives Pertinent Negatives: No Symptoms of GERD, No Major Cardiovascular Symptoms or Complaints and No Major Pulmonary Symptoms or Complaints Cardiac & Pulmonary Exam Cardiac Exam: Normal S1/S2 Heart Sounds Pulmonary Exam: Clear Bilateral Breath Sounds Implantable Cardiac Device Does patient have a Pacemaker or an ICD?: No Airway Exam Known Difficult Airway: No Mallampati Class: 2 Mouth Opening: Normal (> 3cm) Thyromental Distance: Greater than 3 cm Neck Range of Motion: Full ROM Neck Circumference: Normal Teeth Condition: Normal Dentition ASA Classification ASA Score: ASA 2 Emergency Case?: No NPO Status NPO Status: NPO Clears >2 hours, Solids >8 hours Anesthesia Plan Resuscitation Status: Full Code Anesthesia Technique: Spinal Anesthesia Airway Planned: Natural Airway Monitors Used: Standard Monitors
--- NOTE | 2024-02-20 07:11 | W.PM.DSUDISC ---
Date of service: 02/20/24 Time of Service: 07:11 Discharge Plan Disposition Patient Disposition: Home Condition: Good Discharge Details Reason For Visit: B/L THR Attending Provider: Saw Bello Primary Care Provider: Jacquelin Rice Home Meds and New Rx's Prescriptions: New acetaminophen 500 mg tablet 1,000 mg PO TID Qty: 90 3RF aspirin 81 mg tablet,delayed release (DR/EC) 81 mg PO BID Qty: 60 0RF celecoxib 200 mg capsule 200 mg PO BID Qty: 60 0RF pantoprazole 40 mg tablet,delayed release (DR/EC) 40 mg PO DAILY Qty: 30 0RF dexamethasone 4 mg tablet 4 mg PO DAILY Qty: 2 0RF oxycodone 5 mg tablet 5 mg PO Q4H MDD 6 tabs PRN (Reason: pain) Qty: 20 0RF Continued cholecalciferol (vitamin D3) 2,000 unit capsule 2,000 unit PO DAILY tacrolimus 0.1 % ointment 1 applic topical BID PRN (Reason: darrick-orbital dermatitis) Qty: 30 0RF Rx Instructions: Per dermatology--use sparingly, thin layer for shortest duration triamcinolone acetonide 0.1 % ointment 1 applic topical BID PRN (Reason: eczema) Qty: 80 0RF Rx Instructions: Apply to hands BID prn eczema valsartan-hydrochlorothiazide 80-12.5 mg tablet 1 tab PO DAILY Qty: 90 3RF Caltrate 600-D Plus Minerals 1 EACH tablet 1 ea PO DAILY Discontinued ibuprofen 200 MG tablet 3 tab PO PRN acetaminophen 325 mg Tablet 650 mg PO PRN PRN Discharge Instructions Additional Instructions: Total Hip Discharge Instructions Activity: The most important activity is to walk. You should try to take short walks a few times a day. You have no restrictions on movement or positioning, but do not try to force what you do. You will find some stiffness and weakness with hip flexion (lifting your knee). Do not try to strengthen this too early, continue to practice walking and stairs and this will come. - Outpatient physical therapy can be helpful to help return you to a normal gait and improve your flexibility and strength. This can start around 2 weeks. For some patients, it?s not necessary. Usually this is determined at the time of discharge or at the first post-operative visit. - You should wear the VAN hose on both legs for 2 weeks. Dressing: Keep the surgical dressing in place for at least one week. After the first week it may be removed and replace with light gauze and tape or nothing. It may get wet after 3 days but avoid soaking the dressing. If it gets wet, just lightly pat dry. It is important to always keep some gauze between skin folds, especially when you are sitting. Spend some time with the wound exposed when you are lying flat as the incision does wrinkle onto itself. Medications: - You should take Tylenol and an anti-inflammatory Celebrex as your primary pain control medications. If the Celebrex is too expensive or not covered, please call the office for another alternative (Advil/Ibuprofen or Naproxen/Aleve). - You have been prescribed a stronger pain medication Oxycodone for breakthrough pain, take as needed as prescribed. - You have also been prescribed a stomach acid reduction agent Pantoprozole to help reduce stomach acid and reflux. - You have also been prescribed Decadron to help with post-operative nausea and pain. You will take this for two days starting tomorrow. - You will be taking Aspirin 81mg twice a day for DVT prevention unless instructed otherwise. - If you have constipation you should take Colace or Miralax (both [id number]). It takes most people 3-4 days to have a bowel movement. Follow-up: 2 weeks If you have any acute concerns or questions, please do not hesitate to contact the office at [phone]. You may contact Dr. Bello with any questions after hours through the hospital at [phone] or on his cell phone at [phone]. Referrals: Saw Bello MD [ [facility] STAFF PHYSICIAN] - Equipment/Supplies: Walker Activity:: Activity as Tolerated Shower/Bathe:: 72 hours Diet:: As Tolerated DS: Diagnosis Discharge Diagnosis (1) Primary osteoarthritis of both hips: Status: Acute
[2024-02-20] MEDS: ceFAZolin 2 GM/50 ML BAG IVPB (07:44)
[2024-02-20] MEDS: TRANEXAMIC ACID/SOD. CHL. 1,000 MG/100 ML BAG 600 MG IVPB ×2 (07:48→09:01)
--- NOTE | 2024-02-20 08:45 | DI.RAD_ITS ---
Exam(s) XR HIP LT IN OR EXAM: XR HIP LT IN OR CLINICAL HISTORY: Primary osteoarthritis of both hips. TECHNIQUE: 2D digital imaging was performed. COMPARISON: No exams were available for comparison FINDINGS: Fluoroscopy provided intraoperatively during hip arthroplasty. See procedure report for details. Total fluoroscopy time 30.3 seconds IMPRESSION: Radiation exposure index/cumulative dose: lilia Woodson= 2.4703 mGy DATA REPOSITORY: RADIATION DOSE DELIVERED:
--- NOTE | 2024-02-20 08:53 | W.PM.OP ---
Date of service: 02/20/24 Time of Service: 07:50 Operative Note Operative Note DATE OF PROCEDURE: 02/20/24 PRE-OP DIAGNOSIS: Bilateral Hip Osteoarthritis POST-OP DIAGNOSIS: same PROCEDURE: Bilateral Anterior Total Hip Arthroplasty with Intraoperative Navigation SURGEON: Saw Bello PUNCHBOARD ASSEMBLER: Arvind Toribio ANESTHESIA TYPE: Spinal Refer to Anesthesia Record PATHOLOGY: none sent COMPLICATIONS: None Patient was transported to: PACU Patient's condition: stable Implants: RIGHT: 1. Depuy Iv[place]ale Acetabular Component, 52mm 2. Depuy Acetabular Liner, [id number] 3. Depuy Actis Standard Femoral Stem, Size 4 4. Depuy Altrx Ceramic Femoral Head, Size 36+5mm LEFT: 1. Depuy [place] Acetabular Component, 52mm 2. Depuy Acetabular Liner, [id number] 3. Depuy Actis High Offset Femoral Stem, Size 4 4. Depuy Altrx Ceramic Femoral Head, Size 36+1.5mm Indications: I have seen Zhao in clinic for symptoms of hip arthritis, confirmed with radiographic findings. She has exhausted nonoperative methods and was having significant limitations in daily function and desired better function and less pain. I discussed the technical details of a hip replacement. I explained the risks of the procedure to include, but not limited to, bleeding, infection, pain, stiffness, fracture, damage to nerves and vessels, damage to muscles and tendons, loosening, instability, leg length inequality, need for repeat procedure, blood clot and cardiopulmonary demise. Despite these risks, Zhao elected to proceed. Findings: There was significant signs of arthritis throughout both hips. The iliopsoas tendon, which has been a problem for her in the past, was incredible tight with signs of chronic inflammation and this was released. Procedure Description: Zhao was greeted in the preoperative holding area where the correct side was identified and marked. The consent was reviewed with the patient and signed. The history and physical was updated. All questions were answered. She was taken back to the operating room. A spinal anesthestic was then administered. The patient was placed into the supine position on the HANA table. Both feet were wrapped with Webrill cotton wrap along with Coban. LEFT Side The feet were placed in specialized boots for the HANA table, well seated within the boot and secured. SCDs were applied. The patient was then slid down onto a peroneal post. A preoperative AP hip was obtained to serve as a reference for determining leg lengths. Prophylactic antibiotics in the form of Cefazolin were administered. 1g of Tranxemic Acid was given intravenously within 30 minutes of incision. The left leg was then prepped with Chloraprep and draped in a standard fashion. A second prep with Chloraprep was performed prior to placement of a shower-curtain type drape with Iodine impregnated skin protection. A timeout to confirm correct identity, side and site, procedure, allergies, anesthesia, and medical concerns was performed. An obliquely oriented incision was made starting lateral to the ASIS and running distal over the Tensor Fascia Meri (TFL) muscle belly toward the fibular head, approximately 10cm. The skin and soft tissue was dissected sharply, through Corrina?s fascia, and to the fascia of the TFL. With the fascia and superior border of the IT band identified, the fascia was incised with a new knife just above any perforators from the IT band. The TFL muscle belly was bluntly dissected away from the fascia and moved laterally. The fat between TFL and rectus was identified to ensure the dissection was not within the TFL. Blunt dissection created space between abductors and the capsule and retractor was placed over the lateral femoral neck. The fibers of the rectus femoris tendon were identified and these were freed from the anterior capsule. A second cobra retractor was placed around the medial femoral neck. The TFL was further retracted laterally to show the deep fascia. Careful dissection through this layer identified three main crossing vessels of the lateral femoral circumflex. These were cauterized in multiple locations and then cut without any noticeable bleeding. The TFL was further released bluntly from the deep fascia to expose anterior hip capsule and fat The soft tissue orthopaedic retractor was then placed beneath the TFL and against sartorius and medial soft tissues to protect and retract the soft tissues. A T-capsulotomy was then performed starting at the superior lateral acetabulum and moving distally to the intertrochanteric ridge. These capsular flaps were tagged with a No. 1 Ethibond and elevated from within. The capsular flaps were released to the shoulder of the lateral neck and to the lesser trochanter to give excellent visualization of the proximal femur. A neck osteotomy was performed using an oscillating saw based on preoperative templates. This cut started in the shoulder and of the lateral neck and exited medially. The saw was at all times directed medially to avoid injury to the greater trochanter. Gentle traction was applied to the leg and the osteotomy opened. The femoral head was removed with a corkscrew, making sure to protect the TFL on its exit. This was measured on the back table to determing the starting reamer size. Portions of the rectus obscuring visualization were minimally elevated off the superior acetabulum. An anterior retractor was placed over the anterior wall between capsule and labrum and attached to the Gripper retraction system. A posterior retractor was placed similarly. This provided excellent visualization. The contents of the cotyloid fossa were removed with electrocautery and the labrum was removed with a knife. There was significant chondromalacia of the superior acetabulum. Acetabular reaming began with a 46mm reamer. This first reaming was directed anterior to posterior and medial to get down to the true floor. This was inspected and reamed until the true floor was reached. The anterior retractor was then released and entry and exit was provided by traction on the capsular flaps. I then reamed sequentially up to a 52mm reamer where good fit was obtained. The larger reamers were oriented based on anatomical reference of the anterior and lateral munoz to ensure proper abduction and anteversion. Positioning and size was confirmed with the fluoroscopy. A 52mm Depuy Ivydale acetabular component was selected. The acetabulum was reamed around the periphery with the selected acetabular size to prevent a rim fit. The deep tissues were irrigated. The acetabular component was then impacted in a position of about 40 degrees of abduction and 15-20 degrees of anteversion, using the patient?s anatomy as the ultimate landmark. Fluoroscopy was used to confirm this. There was excellent computer technical support specialist of the acetabular component and the inserting handle was removed. The acetabular liner, Depuy [id number] polyethylene liner, was inserted and lined up with the tines of the acetabular component. There was no soft tissue interposition. The liner was then impacted into position and confirmed to be well-seated. A portion of the darrick-articular cocktail was then injected around the acetabulum into the capsule and periosteum. This cocktail consisted of 123mg of Ropivacaine, 0.25mg of Epinephrine, 0.04mg of Clonidine, and 15mg of Ketorolac, diluted to 50cc. Traction was released from the femur. The leg was rotated to 120 degrees. Any remaining medial capsule was released until the lesser trochanter was easily palpable. A Dimas retractor was placed medially. The lateral capsule was further released into the shoulder to allow access to the greater trochanter. A Dimas retractor was placed over the greater trochanter which allowed the trochanter to flip in front of the capsule for excellent exposure. The leg was brought down into maximal extension and 20 degrees of adduction while ensuring there was no impingement on the acetabulum. Any remnant capsule within the trochanter was released. Piriformis and obturator externis were identified and protected. There was excellent access to the proximal femur. The lateral neck remnant was removed with a rongeur. A blunt canal probe was used to identify the canal and trajectory for later broaching. A box osteotome initiated the broach course. A small curved rasp and a curved curette were used to work laterally. Broaching then began with a starter Actis broach. This was inserted manually around the trochanter and into the canal before mallet blows. The broach was seated to a few millimeters below the cut level based on the neck cut and the preoperative template. Sequential broaching was continued with the [employer] pneumatic broaching device until a tight fit was obtained with good rotational control of the femur. A trial high offset neck was inserted along with a +1.5 trial head. The leg was brought out of extension and adduction and then reduced with traction and internal rotation. The leg was stable anteriorly in a position of 30 degrees of extension and 90 degrees of external rotation. Fluoroscopy was used to ensure there was no fracture and the stem was seated well. Leg lengths were checked with an AP pelvis and pelvic reference points. HubNami navigation system was used to confirm appropriate positioning and leg length and offset. Once content with the desired offset and leg lengths, the leg was brought back into extension, external rotation and adduction. The periosteum and surrounding tissue was injected with remaining portion of the darrick-articular cocktail. The proximal femur was irrigated as well as the deep tissues. The Depuy Actis High Offset stem, size 4, was then manually inserted into the proximal femur making sure to control rotation. It was then malleted into position with light blows, giving breaks to allow bone expansion and decrease risk of fracture. The selected Depuy Altrx Ceramic Head, size 36+1.5mm, was then placed onto the clean and dry trunnion and secured with impaction onto the tapered fit. The leg was brought back out of extension and adduction and reduced with traction and internal rotation. Stability was confirmed with no shuck at 90 degrees of external rotation and 30 degrees of extension. No impingement through range of motion arc. However, the iliopsoas tendon was noted to be very tight and much larger than expected, likely from chronic inflammatory chagnes. Final x-ray images were obtained with fluoroscopy to confirm adequate positioning and no intraoperative fracture. The deep tissues were thoroughly irrigated with Surgiphor betadine solution. The second dose of TXA 1g was administered intravenously.The capsule was then reapproximated with the previously placed Ethibond sutures. The TFL fascia was finally closed with a No. 2 Stratafix, barbed suture. Deep tissues were then reapproximated with 0 Vicryl and a running 2-0 Vicryl. The skin was closed with a running 4-0 Monocryl in a subcuticular fashion. This was reinforced with skin glue. A Mepilex silver dressing was applied. RIGHT Side Keeping the back table sterile, the drapes were removed, light handles changed, and fluoroscopy switched rooms sides. Once again, a AP hip was obtained to serve as a reference for determining leg lengths. The right leg was then prepped with Chloraprep and draped in a standard fashion. A second prep with Chloraprep was performed prior to placement of a shower-curtain type drape with Iodine impregnated skin protection. A timeout was once again performed to ensure that there were no issues to proceed. An obliquely oriented incision was made starting lateral to the ASIS and running distal over the Tensor Fascia Meri (TFL) muscle belly toward the fibular head, approximately 10cm. The skin and soft tissue was dissected sharply, through Corrina?s fascia, and to the fascia of the TFL. With the fascia and superior border of the IT band identified, the fascia was incised with a new knife just above any perforators from the IT band. The TFL muscle belly was bluntly dissected away from the fascia and moved laterally. The fat between TFL and rectus was identified to ensure the dissection was not within the TFL. Blunt dissection created space between abductors and the capsule and retractor was placed over the lateral femoral neck. The fibers of the rectus femoris tendon were identified and these were freed from the anterior capsule. A second cobra retractor was placed around the medial femoral neck. The TFL was further retracted laterally to show the deep fascia. Careful dissection through this layer identified three main crossing vessels of the lateral femoral circumflex. These were cauterized in multiple locations and then cut without any noticeable bleeding. The TFL was further released bluntly from the deep fascia to expose anterior hip capsule and fat The soft tissue orthopaedic retractor was then placed beneath the TFL and against sartorius and medial soft tissues to protect and retract the soft tissues. A T-capsulotomy was then performed starting at the superior lateral acetabulum and moving distally to the intertrochanteric ridge. These capsular flaps were tagged with a No. 1 Ethibond and elevated from within. The capsular flaps were released to the shoulder of the lateral neck and to the lesser trochanter to give excellent visualization of the proximal femur. A neck osteotomy was performed using an oscillating saw based on preoperative templates. This cut started in the shoulder and of the lateral neck and exited medially. The saw was at all times directed medially to avoid injury to the greater trochanter. Gentle traction was applied to the leg and the osteotomy opened. The femoral head was removed with a corkscrew, making sure to protect the TFL on its exit. This was measured on the back table to determing the starting reamer size. Portions of the rectus obscuring visualization were minimally elevated off the superior acetabulum. An anterior retractor was placed over the anterior wall between capsule and labrum and attached to the Gripper retraction system. A posterior retractor was placed similarly. This provided excellent visualization. The contents of the cotyloid fossa were removed with electrocautery and the labrum was removed with a knife. There was a notable floor osteophyte. There was significant chondromalacia of the superior acetabulum. Acetabular reaming began with a 46mm reamer. This first reaming was directed anterior to posterior and medial to get down to the true floor. This was inspected and reamed until the true floor was reached. The anterior retractor was then released and entry and exit was provided by traction on the capsular flaps. I then reamed sequentially up to a 52mm reamer where good fit was obtained. The larger reamers were oriented based on anatomical reference of the anterior and lateral munoz to ensure proper abduction and anteversion. Positioning and size was confirmed with the fluoroscopy. A 52mm Depuy Iv[place]ale acetabular component was selected. The acetabulum was reamed around the periphery with the selected acetabular size to prevent a rim fit. The deep tissues were irrigated. The acetabular component was then impacted in a position of about 40 degrees of abduction and 15-20 degrees of anteversion, using the patient?s anatomy as the ultimate landmark. Fluoroscopy was used to confirm this. There was excellent computer technical support specialist of the acetabular component and the inserting handle was removed. The acetabular liner, Depuy [id number] polyethylene liner, was inserted and lined up with the tines of the acetabular component. There was no soft tissue interposition. The liner was then impacted into position and confirmed to be well-seated. A portion of the darrick-articular cocktail was then injected around the acetabulum into the capsule and periosteum. This cocktail consisted of 123mg of Ropivacaine, 0.25mg of Epinephrine, 0.04mg of Clonidine, and 15mg of Ketorolac, diluted to 50cc. Traction was released from the femur. The leg was rotated to 120 degrees. Any remaining medial capsule was released until the lesser trochanter was easily palpable. A Dimas retractor was placed medially. The lateral capsule was further released into the shoulder to allow access to the greater trochanter. A Dimas retractor was placed over the greater trochanter which allowed the trochanter to flip in front of the capsule for excellent exposure. The leg was brought down into maximal extension and 20 degrees of adduction while ensuring there was no impingement on the acetabulum. Any remnant capsule within the trochanter was released. Piriformis and obturator externis were identified and protected. There was excellent access to the proximal femur. The lateral neck remnant was removed with a rongeur. A blunt canal probe was used to identify the canal and trajectory for later broaching. A box osteotome initiated the broach course. A small curved rasp and a curved curette were used to work laterally. Broaching then began with a starter Actis broach. This was inserted manually around the trochanter and into the canal before mallet blows. The broach was seated to a few millimeters below the cut level based on the neck cut and the preoperative template. Sequential broaching was continued with the [employer] pneumatic broaching device until a tight fit was obtained with good rotational control of the femur. A trial high offset neck was inserted along with a +1.5 trial head. The leg was brought out of extension and adduction and then reduced with traction and internal rotation. The leg was stable anteriorly in a position of 30 degrees of extension and 90 degrees of external rotation. Fluoroscopy was used to ensure there was no fracture and the stem was seated well. Leg lengths were checked with an AP pelvis and pelvic reference points. HubNami navigation system was used to confirm appropriate positioning and leg length and offset. This seemed to over-correct the offset so I planned to advance the stem and use a standard offset stem. Once content with the desired offset and leg lengths, the leg was brought back into extension, external rotation and adduction. The periosteum and surrounding tissue was injected with remaining portion of the darrick-articular cocktail. The proximal femur was irrigated as well as the deep tissues. The Depuy Actis standard stem, size 4, was then manually inserted into the proximal femur making sure to control rotation. It was then malleted into position with light blows, giving breaks to allow bone expansion and decrease risk of fracture. The selected Depuy Altrx Ceramic Head, size 36+5mm, was then placed onto the clean and dry trunnion and secured with impaction onto the tapered fit. The leg was brought back out of extension and adduction and reduced with traction and internal rotation. Stability was confirmed with no shuck at 90 degrees of external rotation and 30 degrees of extension. No impingement through range of motion arc. Like the left side, the iliopsoas tendon was noted to be quite tight draped over the femoral head and the anterior acetabulum with some chronic changes near its insertion. Therefore proceeded to release it off the lesser trochanter. Final x-ray images were obtained with fluoroscopy to confirm adequate positioning and no intraoperative fracture. The deep tissues were thoroughly irrigated with Irrisept chlorhexadine solution. The capsule was then reapproximated with the previously placed Ethibond sutures. The TFL fascia was finally closed with a No. 2 Stratafix, barbed suture. Deep tissues were then reapproximated with 0 Vicryl and a running 2-0 Vicryl. The skin was closed with a running 4-0 Monocryl in a subcuticular fashion. This was reinforced with skin glue. A Mepilex silver dressing was applied. At the end of the case, all counts were correct. Zhao was transferred to the hospital bed without difficulty and suffering no apparent complication. Zhao has a good prognosis. Physical therapy will start today and without restrictions, weight-bearing as tolerated. Aspirin 81mg BID will be used for DVT prophylaxis.
--- NOTE | 2024-02-20 09:59 | DI.RAD_ITS ---
Exam(s) XR HIP RT IN OR EXAM: XR HIP RT IN OR CLINICAL HISTORY: Primary osteoarthritis of both hips. TECHNIQUE: 2D digital imaging was performed. COMPARISON: No exams were available for comparison FINDINGS: Fluoroscopy was provided intraoperatively during hip arthroplasty. See procedure report details. Total fluoroscopy time 25.9 seconds IMPRESSION: Radiation exposure index/cumulative dose: lilia Woodson=25.9 mGy DATA REPOSITORY: RADIATION DOSE DELIVERED:
--- NOTE | 2024-02-20 12:45 | IN_ITS ---
PT Notes Visit Reasons: B/L THR Physical Therapy Day Surgery Initial Evaluation Date: 02/20/2024 Referring Doctor: TARIQ Adams PT Orders: PT CONSULT: S/p Ortho Surgery Precautions: WBAT on B LE with AD. Patient Profile/Admitting Diagnosis: Fifi is a 68-year-old female with degenerative joint disease of bilateral hips and is status post bilateral anterior total hip arthroplasties on postoperative day 0. PMHX: Medical History Dehydration Nausea and vomiting Right patella fracture (09/11/22) SARS-CoV-2 positive (~05/18/22) Dermatofibroma (06/18/18) Eczema (06/18/18) Impacted cerumen (11/27/14) Left breast mass (03/29/17) Seborrheic keratoses (06/18/18) Surgical History Trigger finger rgt fifth (08/05/03) Colonoscopy - IV Sedation (08/06/13) Biopsy of breast (04/12/17) Dr Akbar- neg for malignancy Social History/Home Situation: Lives with Tam in a praivte home with 2-3 steps to enter with rails on B sides. Independent with all aspects of ADLs prior to surgery although has had increasing diffculty with mobility ADL performance due to worsening arthritis. Daughter Isabel will be with patient for one week to help out with her recovery. Equipment Owned/DME: [facility] Subjective: Complained of numbness in her buttocks. Mildly lightheaded after PT session, Nurse Ronak made aware. Objective: General Observation: Resting in Bed. Mepilex Ag over surgical incisions. TEDS to B legs. Cold pack over surgical incisions. Mental Status: A and O x 4 Pain: 1/10 in B hips ROM: Right Lower Extremity: Hip flexion WFL. Hip abduction WFL. Knee flexion WFL. Ankle dorsiflexion WFL. Ankle plantarflexion WFL. Left Lower Extremity: Hip flexion WFL. Hip abduction WFL. Knee flexion WFL. Ankle dorsiflexion WFL. Ankle plantarflexion WFL. Strength: Right Lower Extremity: Hip flexors 4-/5. Hip abductors 4-/5. Knee flexors 4/5. Knee extensors 4-/5. Ankle dorsiflexors 4/5. Ankle plantarflexors 4/5. Left Lower Extremity:Hip flexors 4-/5. Hip abductors 4-/5. Knee flexors 4/5. Knee extensors 4-/5. Ankle dorsiflexors 4/5. Ankle plantarflexors 4/5. Sensation: Numbness in B gluteal areas, otherwise intact in B LE Bed Mobility/Transfers: Minimal cueing provided for use of B hands as needed for support, movement sequence, AD management, and posture to reduce fall risk and minimize pain report Supine to sit stand by assist Sit to stand contact guard assist Stand to sit stand by assist Bed to chair contact-guard assist Gait: Facilitated safe and correct performance of level surface ambulation covering a distance of 100 feet +50 feet using front wheeled walker requiring contact-guard assist and minimal verbal cueing for safe gait pattern, AD management, and posture to reduce fall risk and minimize pain report. Stairs: Guided patient with safe and correct negotiation of 3 x 4 inch steps and 2 x 6 inch steps while holding onto bilateral rails with step to gait pattern with minimal verbal cueing provided for limb advancement, hand placement, and controlled descent of each foot down the stairs to reduce fall risk and minimize pain report. Balance: Static Sitting: Normal Dynamic Sitting: Normal Static Standing: Fair Dynamic Standing: Fair Special Tests: Mobility Limitations Standardized Measure [facility] AM-PAC 6 clicks Basic Mobility Inpatient Short Form: Raw Score: 20 CMS Score: 36% deficit Informed Consent/Education: Patient instructed in purpose of PT consult. Packet containing MELODY exercise protocol has been given to patient. Education and training on initial set of e xercises that can be done at home have been completed with patient. Trained patient with correct performance of exercises below to maximize motor control, joint flexibility, soft tissue extensibility of the B hips musculature to facilitate return to independent functional mobility performance. Access Code: [email or web address] URL: [email or web address] Date: 02/20/2024 Prepared by: Eliane Thomas Exercises - Gluteal Sets - 1 x daily - 7 x weekly - 1 sets - 10 reps - 5 hold - Supine Heel Slide - 1 x daily - 7 x weekly - 1 sets - 10 reps - 5 hold - Supine Ankle Pumps - 1 x daily - 7 x weekly - 1 sets - 10 reps - 5 hold - Seated March - 1 x daily - 7 x weekly - 1 sets - 10 reps - 5 hold - Seated Long Arc Quad - 1 x daily - 7 x weekly - 1 sets - 10 reps - 5 hold Assessment: Patient requires use of a front wheeled walker for mobility ADL performance to maximize independence and reduce fall risk. Patient presents with clinical signs and symptoms consistent with current/admitting diagnoses that have resulted to mobility limitations, gait instability, generalized weakness, and impairment of motor control as demonstrated by the following impairment level findings: 1. Decreased strength to B hip major muscle groups 2. Impaired standing balance Impairments are contributing to the following functional limitations: 1. Inability to safely ambulate without assistive device 2. Increase completion time for mobility ADL performance 3. Increased fall risk Patient is assessed as a 48387 moderate complexity based on the following: History: 68-year-old female with impairment level findings, functional limitations, and past medical history as indicated above Examination: Demonstrable impairment in strength, balance, and mobility level with underlying impairments and functional limitations as documented above Presentation: Evolving Decision Makin moderate complexity Goals: N/A. PT evaluation and 1-2 treatment sessions only for functional mobility training using recommended AD and for HEP instruction. Plan of Care/Treatment Plan: N/A. PT evaluation and 1-2 treatment session only for functional mobility training using recommended AD and for HEP instruction. DISCHARGE RECOMMENDATIONS: Home when medically cleared by orthopedic surgeon. Recommend outpatient PT services in order to optimize functional mobility outcomes and facilitate return to independent community ambulation without an assistive device. TREATMENT CODE/TIME: 17342 x 20 minutes for 1 unit, 31848 x 19 minutes for 1 unit (12:45-13:24). Thank you for the opportunity to participate in the care of this patient. Please sign an return this page within 30 days if you agree with the above POC. Thank you! Physician Signature Date [facility] Thank you for the opportunity to participate in the care of this patient. Eliane Thomas PT, DPT, CLT [facility] [place], [place]
--- NOTE | 2024-02-20 13:40 | W.ANESPOSTOP ---
Postoperative Evaluation Date, Time and Location Date Performed: 02/20/24 Time Performed: 13:40 Patient Location: Day Surgery Unit Vital Signs Most Recent Imported Vital Signs: Most Recent Vital Signs Temp Pulse Resp BP Pulse Ox 36.5 C 69 16 115/63 99 02/20/24 13:27 02/20/24 13:27 02/20/24 13:27 02/20/24 13:27 02/20/24 13:27 Pain Score Most Recent Pain Score: Most Recent Pain Score Pain Level 1 02/20/24 13:27 Assessment Mental Status: Awake (Alert & Oriented to Patient Baseline) Airway and Respiratory Function: Patent airway with normal (patient baseline) respiratory exam Cardiovascular Function: Hemodynamically Stable Hydration Status: Adequately Hydrated Nausea & Vomiting: No Nausea or Vomiting Pain: Pain is tolerable per patient Peripheral Nerve Block: Patient did not receive a nerve block
== END 2024-02-20 14:47 | disposition home or self-care (01) ==
PROVIDERS: PCP Nurse Practitioner Adult Health; Visit Provider Student in an Organized Health Care Education/Training Program
PROC: 0SR90JZ Replacement of Right Hip Joint with Synthetic Substitute, Open Approach (ICD-10-PCS; CPT 27130; principal; 2024-02-20 07:30)
DX: M16.0 Bilateral primary osteoarthritis of hip (principal); I10 Essential (primary) hypertension; M81.0 Age-related osteoporosis without current pathological fracture
CPT/HCPCS: 20985; 27130; C1776; 97163; 97530; 73501; J0690; J1100; J2001; J2250; J2371; J2405; J2704

== ENCOUNTER 2024-03-04 16:00 | Outpatient (CLI) | payer MEDICARE, SELFPAY ==
--- NOTE | 2024-03-04 14:00 | DI.RAD_ITS ---
Exam(s) XR HIP PELVIS ADULT BL EXAM: XR HIP PELVIS ADULT BL CLINICAL HISTORY: 1st post op s/p BILAT MELODY. TECHNIQUE: 2D digital imaging was performed. Three views. COMPARISON: CR XR HIP PELVIS ADULT BL from 07/10/2023 XA XR HIP LT IN OR from 02/20/2024 XA XR HIP RT IN OR from 02/20/2024 FINDINGS: There are bilateral hip prostheses which appear appear unchanged in alignment compared with intraoper ative images. No abnormal surrounding bony lucencies. IMPRESSION: Satisfactory postoperative appearance. DATA REPOSITORY: RADIATION DOSE DELIVERED:
== END 2024-03-04 16:01 | disposition home or self-care (01) ==
LOC: DIORS 16:00
PROVIDERS: PCP Nurse Practitioner Adult Health; Visit Provider Student in an Organized Health Care Education/Training Program
DX: Z96.643 Presence of artificial hip joint, bilateral (principal); Z47.1 Aftercare following joint replacement surgery
CPT/HCPCS: 73521

== ENCOUNTER → 2024-04-01 13:51 | Outpatient (BNVA) | payer MEDICARE, SELFPAY | PROVIDERS: PCP Nurse Practitioner Adult Health; Referring Provider Nurse Practitioner Adult Health; Visit Provider Student in an Organized Health Care Education/Training Program | DX: Z47.1 Aftercare following joint replacement surgery (principal); Z96.643 Presence of artificial hip joint, bilateral ==

== ENCOUNTER 2024-08-17 14:33 | Outpatient (CLI) | payer MEDICARE, SELFPAY ==
--- NOTE | 2024-08-17 | DI.RAD_ITS ---
Exam(s) XR THUMB LT EXAM: XR THUMB LT EXAM DATE/TIME: CLINICAL HISTORY: PAIN. TECHNIQUE: 2D digital imaging was performed of the left finger. Three views were obtained. PA/AP, oblique, and lateral views were obtained. COMPARISON: None. FINDINGS: BONES: No acute fracture is present. No bony destructive lesion is seen. There osseous fragment seen anterior to the interphalangeal joint of the thumb which appear chronic. The appear well corticated. JOINTS: No dislocation is present. There are mild degenerative changes seen at the thumb. SOFT TISSUE: Normal. IMPRESSION: 1. No definite fracture or dislocation. 2. Degenerative changes seen in the thumb predominantly at the interphalangeal joint in the 1st [facility] j oint. 3. Osseous fragments anterior to the interphalangeal joint of the thumb which appear chronic. If the re is concern for an acute fracture, a CT scan should be considered. Please correlate with patient's site of pain and clinical history. DATA REPOSITORY: RADIATION DOSE DELIVERED:
--- NOTE | 2024-08-17 | DI.RAD_ITS ---
Exam(s) XR FOOT LT COMPLETE XR ANKLE LT COMPLETE EXAM: XR FOOT LT COMPLETE and XR ankle LT complete CLINICAL HISTORY: LEFT FOOT PAIN. TECHNIQUE: 2D digital imaging was performed of the left ankle and foot. Seven images were obtained. AP, oblique and lateral views were obtained. COMPARISON: There are no priors for comparison. FINDINGS: BONES: There is a nondisplaced fracture through the body of the calcaneus best appreciated on the lat eral view. The fracture may extend anteriorly into the subtalar joint. There is a plantar calcaneal spur which is small. There is a small enthesophyte at the posterior calcaneus. No bony destructive lesion is seen. There is also deformity of the head of the 5th metatarsal bone. This is of indeterm inate acuity. Please correlate the patient's site of pain. JOINTS: No dislocation present. The ankle mortise is intact. SOFT TISSUE: There is soft tissue swelling around the hindfoot and ankle particularly laterally. IMPRESSION: 1. Acute versus subacute fracture involving the body of the calcaneus without significant displacemen t. There is soft tissue swelling of the hindfoot and ankle particularly laterally. 2. Deformity involving the head of the 5th metatarsal bone. This may represent old fracture however correlation should be made with the patient's site of pain to assess for acuity. DATA REPOSITORY: RADIATION DOSE DELIVERED:
--- NOTE | 2024-08-17 15:49 | DI.VRAD_ITS ---
PROCEDURE INFORMATION: Exam: XR Left Ankle Exam date and time: 08/17/2024 2:52 PM Age: 69 years old Clinical indication: Other: Left foot pain TECHNIQUE: Imaging protocol: Radiologic exam of the left ankle. Views: 3 or more views. COMPARISON: CR XR FOOT LT COMPLETE 08/17/2024 2:50 PM FINDINGS: Bones/joints: Images are obtained through a compression sock over the ankle and foot. No acute fracture of the medial or lateral malleoli identified. The mortise ankle is intact. The articular surface of the talus is intact. There is a subacute nondisplaced fracture through the midbody of the calcaneus. This extends to the superior margin of the calcaneus. It does not appear to extend to the anterior articular surface or the inferior surface. The fracture margins are indistinct and there is sclerosis Soft tissues: There is moderate soft tissue swelling over the lateral malleolus. No soft tissue gas or foreign bodies. IMPRESSION: 1. Findings consistent with a subacute nondisplaced fracture through the midbody of the calcaneus extending to the superior articular surface. 2. The medial and lateral malleoli are intact. 3. Moderate soft tissue swelling over the lateral malleolus Dictated and Authenticated by: Gerald Villeda MD. Ordering:ELYSSA Santana MD
--- NOTE | 2024-08-17 15:56 | DI.VRAD_ITS ---
PROCEDURE INFORMATION: Exam: XR Left Foot Exam date and time: 08/17/2024 2:50 PM Age: 69 years old Clinical indication: Other: Left ankle pain TECHNIQUE: Imaging protocol: Radiologic exam of the left foot. Views: 3 or more views. COMPARISON: No relevant prior studies available. FINDINGS: Bones/joints: Images are obtained through a compression sock around the ankle and foot. There is a nondisplaced subacute fracture through the midbody of the calcaneus that extends to the superior surface of the calcaneus. There is a tiny plantar calcaneal spur. No acute fracture of the forefoot or midfoot identified. There is deformity of the 5th metatarsal head consistent with an old healed fracture. No abnormal periosteal reactions. There is no bony destruction or bony erosion. Soft tissues: No soft tissue gas or foreign bodies. IMPRESSION: 1. Subacute nondisplaced fracture through the midbody of the calcaneus. 2. Suspect old healed fracture of the 5th metatarsal head. 3. No abnormal soft tissue gas or foreign body is identified. Dictated and Authenticated by: Gerald Villeda MD. Ordering:ELYSSA Santana MD
--- NOTE | 2024-08-17 16:01 | DI.VRAD_ITS ---
PROCEDURE INFORMATION: Exam: XR Left Finger(s) Exam date and time: 08/17/2024 2:46 PM Age: 69 years old Clinical indication: Other: Left thumb pain TECHNIQUE: Imaging protocol: Radiologic exam of the left fingers. Views: Minimum 2 views. COMPARISON: No relevant prior studies available. FINDINGS: Bones/joints: On the lateral projection there appears to be a small avulsion fracture from the volar base of the distal phalanx of the thumb. Age of this is undetermined. There is mild degenerative change at the 1st metacarpal carpal articulation as well as of the 1st metacarpal phalangeal joint and the interphalangeal joint. Changes consist of mild joint space narrowing and spur formation. There are no erosive changes. No bony destruction. Soft tissues: No soft tissue gas or foreign bodies. IMPRESSION: 1. Suspect a nondisplaced avulsion fracture from the volar base of the distal phalanx of the thumb, age undetermined. Clinical correlation is needed. 2. Mild osteoarthritis of the joints as noted above. Dictated and Authenticated by: Gerald Villeda MD. Ordering:ELYSSA Santana MD
== END 2024-08-17 14:53 ==
PROVIDERS: PCP Nurse Practitioner Adult Health; Visit Provider Physician Assistant Medical
DX: M18.12 Unilateral primary osteoarthritis of first carpometacarpal joint, left hand (principal); S92.012A Displaced fracture of body of left calcaneus, initial encounter for closed fracture; X58.XXXA Exposure to other specified factors, initial encounter
CPT/HCPCS: 73140; 73610; 73630

== ENCOUNTER 2024-08-21 11:14 | Outpatient (CLI) | payer MEDICARE, SELFPAY ==
--- NOTE | 2024-08-21 09:30 | DI.CT_ITS ---
Exam(s) CT LOWER EXTREMITY LT WO EXAM: CT LOWER EXTREMITY LT WO CLINICAL HISTORY: SURGICAL PLANNING S92.002A FX LEFT CALCANEUS. TECHNIQUE: Imaging Protocol: Axial computed tomography images with coronal and sagittal reformatted images were created and reviewed. CONTRAST MATERIAL: Noncontrast COMPARISON: CR,XR XR ANKLE LT COMPLETE from 08/17/2024 FINDINGS: Bones: There is a comminuted calcaneal fracture extending from the superior tuberosity extending ante riorly to the articular surface of the anterior process. There is no significant separation at the a rticular surface. Comminuted portion of the fracture at the lateral aspect of the calcaneus extends to the posterior talocalcaneal joint with a few millimeters of separation. The remaining bones of th e ankle and foot show no additional fractures.. No osteomyelitic changes are identified. No lytic or sclerotic lesions are identified. Joints: There is no significant joint space narrowing. No significant periarticular spurring. Soft Tissues: Diffuse swelling. IMPRESSION: Mildly displaced, comminuted calcaneal fracture with extension to the posterior talocalcaneal joint a nd calcaneal cuboid joint. RADIATION DOSE DELIVERED: 84.44mGy.cm Total DLP DATA REPOSITORY: All CT scans at this facility are submitted to the National Radiology Data Registry (NRDR) Dose Index Registry (DIR) with the [employer] ([employer]). RADIATION OPTIMIZATION: All CT scans at this facility use at least one of these dose optimization te chniques: automated exposure control; mA and/or kV adjustment per patient size (includes targeted exa ms where dose is matched to clinical indication); or iterative reconstruction.
== END 2024-08-21 11:34 ==
LOC: DI 11:21
PROVIDERS: PCP Nurse Practitioner Adult Health; Visit Provider Student in an Organized Health Care Education/Training Program
DX: S92.012D Displaced fracture of body of left calcaneus, subsequent encounter for fracture with routine healing (principal); X58.XXXD Exposure to other specified factors, subsequent encounter
CPT/HCPCS: 73700

== ENCOUNTER 2024-09-02 11:41 | Outpatient (CLI) | payer MEDICARE, SELFPAY ==
--- NOTE | 2024-09-02 08:45 | DI.RAD_ITS ---
Exam(s) XR HEEL LT OS CALCIS EXAM: XR HEEL LT OS CALCIS CLINICAL HISTORY: f/u fracture. TECHNIQUE: 2D digital imaging was performed. Two images were obtained. COMPARISON: CR,XR XR ANKLE LT COMPLETE from 08/17/[address] LOWER EXTREMITY LT WO from 08/21/2024 FINDINGS: BONES: There has been no change in alignment of the calcaneal fracture since 08/17/2024. There is a s mall plantar calcaneal spur. Is an enthesophyte at the posterior calcaneus. No bony destructive les ion is seen. JOINTS: The fracture appears to involve the talocalcaneal joint. SOFT TISSUE: Normal. IMPRESSION: Stable alignment of the calcaneal fracture. DATA REPOSITORY: RADIATION DOSE DELIVERED:
== END 2024-09-02 11:42 | disposition home or self-care (01) ==
LOC: DIORS 11:44
PROVIDERS: PCP Nurse Practitioner Adult Health; Referring Provider Nurse Practitioner Adult Health; Visit Provider Student in an Organized Health Care Education/Training Program
DX: S92.002A Unspecified fracture of left calcaneus, initial encounter for closed fracture (principal)
CPT/HCPCS: 73650

== ENCOUNTER 2024-09-30 15:30 | Outpatient (CLI) | payer MEDICARE, SELFPAY ==
--- NOTE | 2024-09-30 09:00 | DI.RAD_ITS ---
Exam(s) XR HEEL LT OS CALCIS EXAM: XR HEEL LT OS CALCIS INDICATION: F/U L CALCANEAL FX. COMPARISON: CR XR HEEL LT OS CALCIS from 09/02/2024 TECHNIQUE: 2D digital imaging was performed. Two views. FINDINGS: Continued healing of calcaneal fracture. No change in alignment. No new abnormalities. DATA REPOSITORY: RADIATION DOSE DELIVERED:
== END 2024-09-30 15:31 | disposition home or self-care (01) ==
LOC: DIORS 15:30
PROVIDERS: PCP Nurse Practitioner Adult Health; Referring Provider Nurse Practitioner Adult Health; Visit Provider Student in an Organized Health Care Education/Training Program
DX: S92.002D Unspecified fracture of left calcaneus, subsequent encounter for fracture with routine healing (principal); X58.XXXD Exposure to other specified factors, subsequent encounter
CPT/HCPCS: 99213; 73650

== ENCOUNTER 2024-10-28 15:24 | Outpatient (CLI) | payer MEDICARE, SELFPAY ==
--- NOTE | 2024-10-28 10:00 | DI.RAD_ITS ---
Exam(s) XR HEEL LT OS CALCIS EXAM: XR HEEL LT OS CALCIS CLINICAL HISTORY: F/U FRACTURE. TECHNIQUE: 2D digital imaging was performed. COMPARISON: CR XR HEEL LT OS CALCIS from 09/30/2024 FINDINGS: 3 views There is continued healing the calcaneal fracture site. No change in alignment evident. No further height loss. Tiny inferior calcaneal spur again noted as well as enthesophyte on the posterior cane use/Achilles insertional site. IMPRESSION: Continued further healing of the calcaneal fracture site. No change in alignment. DATA REPOSITORY: RADIATION DOSE DELIVERED:
== END 2024-10-28 15:25 | disposition home or self-care (01) ==
LOC: DIORS 15:25
PROVIDERS: PCP Nurse Practitioner Adult Health; Referring Provider Nurse Practitioner Adult Health; Visit Provider Physician Assistant
DX: S92.002D Unspecified fracture of left calcaneus, subsequent encounter for fracture with routine healing (principal); X58.XXXD Exposure to other specified factors, subsequent encounter
CPT/HCPCS: 99213; 73650

== ENCOUNTER 2024-11-28 15:44 | Outpatient (CLI) | payer MEDICARE, SELFPAY | END 2024-11-28 15:45 | disposition home or self-care (01) | LOC: PUVA 15:46 | PROVIDERS: PCP Nurse Practitioner Adult Health; Visit Provider Dermatology | DX: L29.89 Other pruritus (principal) | CPT/HCPCS: 96900 ==

== ENCOUNTER 2024-11-29 08:51 | Outpatient (CLI) | payer MEDICARE, SELFPAY | END 2024-11-29 08:52 | disposition home or self-care (01) | LOC: PUVA 08:52 | PROVIDERS: PCP Nurse Practitioner Adult Health; Visit Provider Dermatology | DX: L29.89 Other pruritus (principal) | CPT/HCPCS: 96900 ==

== ENCOUNTER 2024-12-03 15:48 | Outpatient (CLI) | payer MEDICARE, SELFPAY | END 2024-12-03 15:49 | disposition home or self-care (01) | LOC: PUVA 15:50 | PROVIDERS: PCP Nurse Practitioner Adult Health; Visit Provider Dermatology | DX: L29.89 Other pruritus (principal) | CPT/HCPCS: 96900 ==

== ENCOUNTER 2024-12-05 15:52 | Outpatient (CLI) | payer MEDICARE, SELFPAY | END 2024-12-05 15:53 | disposition home or self-care (01) | LOC: PUVA 15:53 | PROVIDERS: PCP Nurse Practitioner Adult Health; Visit Provider Dermatology | DX: L29.9 Pruritus, unspecified (principal) | CPT/HCPCS: 96900 ==

== ENCOUNTER 2024-12-06 08:58 | Outpatient (CLI) | payer MEDICARE, SELFPAY | END 2024-12-06 08:59 | disposition home or self-care (01) | LOC: PUVA 08:59 | PROVIDERS: PCP Nurse Practitioner Adult Health; Visit Provider Dermatology | DX: L29.89 Other pruritus (principal) | CPT/HCPCS: 96900 ==

== ENCOUNTER 2024-12-10 15:48 | Outpatient (CLI) | payer MEDICARE, SELFPAY | END 2024-12-10 15:49 | disposition home or self-care (01) | LOC: PUVA 15:48 | PROVIDERS: PCP Nurse Practitioner Adult Health; Visit Provider Dermatology | DX: L29.89 Other pruritus (principal) | CPT/HCPCS: 96900 ==

== ENCOUNTER 2024-12-12 15:55 | Outpatient (CLI) | payer MEDICARE, SELFPAY | END 2024-12-12 15:56 | disposition home or self-care (01) | LOC: PUVA 15:56 | PROVIDERS: PCP Nurse Practitioner Adult Health; Visit Provider Dermatology | DX: L29.89 Other pruritus (principal) | CPT/HCPCS: 96900 ==

== ENCOUNTER 2024-12-13 07:21 | Outpatient (CLI) | payer MEDICARE, SELFPAY | END 2024-12-13 07:22 | disposition home or self-care (01) | LOC: PUVA 07:22 | PROVIDERS: PCP Nurse Practitioner Adult Health; Visit Provider Dermatology | DX: L29.89 Other pruritus (principal) | CPT/HCPCS: 96900 ==

== ENCOUNTER → 2024-12-16 09:52 | Outpatient (BNVA) | payer MEDICARE, SELFPAY | PROVIDERS: PCP Nurse Practitioner Adult Health; Visit Provider Student in an Organized Health Care Education/Training Program | DX: S92.002D Unspecified fracture of left calcaneus, subsequent encounter for fracture with routine healing (principal); X58.XXXD Exposure to other specified factors, subsequent encounter | CPT/HCPCS: 99213 ==

== ENCOUNTER 2024-12-17 08:03 | Outpatient (CLI) | payer MEDICARE, SELFPAY | END 2024-12-17 08:04 | disposition home or self-care (01) | LOC: PUVA 08:03 | PROVIDERS: PCP Nurse Practitioner Adult Health; Visit Provider Dermatology | DX: L29.89 Other pruritus (principal) | CPT/HCPCS: 96900 ==

== ENCOUNTER 2024-12-24 07:07 | Outpatient (CLI) | payer MEDICARE, SELFPAY | END 2024-12-24 07:08 | disposition home or self-care (01) | LOC: PUVA 07:08 | PROVIDERS: PCP Nurse Practitioner Adult Health; Visit Provider Dermatology | DX: L29.89 Other pruritus (principal) | CPT/HCPCS: 96900 ==

== ENCOUNTER 2024-12-26 14:19 | Outpatient (CLI) | payer MEDICARE, SELFPAY | END 2024-12-26 14:20 | disposition home or self-care (01) | LOC: PUVA 14:20 | PROVIDERS: PCP Nurse Practitioner Adult Health; Visit Provider Dermatology | DX: L29.89 Other pruritus (principal) | CPT/HCPCS: 96900 ==

== ENCOUNTER 2024-12-31 15:58 | Outpatient (CLI) | payer MEDICARE, SELFPAY | END 2024-12-31 15:59 | disposition home or self-care (01) | LOC: PUVA 15:58 | PROVIDERS: PCP Nurse Practitioner Adult Health; Visit Provider Dermatology | DX: L29.89 Other pruritus (principal) | CPT/HCPCS: 96900 ==

== ENCOUNTER 2025-01-09 10:20 | Outpatient (CLI) | payer MEDICARE, SELFPAY | END 2025-01-09 10:21 | disposition home or self-care (01) | LOC: PUVA 10:20 | PROVIDERS: PCP Nurse Practitioner Adult Health; Visit Provider Dermatology | DX: L29.89 Other pruritus (principal) | CPT/HCPCS: 96900 ==

== ENCOUNTER 2025-01-10 07:13 | Outpatient (CLI) | payer MEDICARE, SELFPAY | END 2025-01-10 07:14 | disposition home or self-care (01) | LOC: PUVA 07:13 | PROVIDERS: PCP Nurse Practitioner Adult Health; Visit Provider Dermatology | DX: L29.89 Other pruritus (principal) | CPT/HCPCS: 96900 ==

== ENCOUNTER 2025-01-16 16:41 | Outpatient (CLI) | payer MEDICARE, SELFPAY | END 2025-01-16 16:42 | disposition home or self-care (01) | LOC: PUVA 16:43 | PROVIDERS: PCP Nurse Practitioner Adult Health; Visit Provider Dermatology | DX: L29.89 Other pruritus (principal) | CPT/HCPCS: 96900 ==

== ENCOUNTER 2025-02-20 15:03 | Outpatient (CLI) | payer MEDICARE, SELFPAY ==
--- NOTE | 2025-02-20 13:00 | DI.RAD_ITS ---
Exam(s) XR HIP RT AP LAT ONLY EXAM: XR HIP RT AP LAT ONLY CLINICAL HISTORY: ANNUAL F/U BILAT THAs. TECHNIQUE: 2D digital imaging was performed. Two images were obtained. AP and lateral views were ob tained. COMPARISON: CR XR HIP PELVIS ADULT BL from 03/04/2024 FINDINGS: BONES: There are stable post operative changes of a right total hip arthroplasty present. No fractur e or dislocation. JOINTS: The orthopedic hardware is in good position. No evidence of hardware loosening. SOFT TISSUE: Normal. IMPRESSION: Stable right total hip arthroplasty. DATA REPOSITORY: RADIATION DOSE DELIVERED:
--- NOTE | 2025-02-20 13:00 | DI.RAD_ITS ---
Exam(s) XR HIP LT AP LAT ONLY EXAM: XR HIP LT AP LAT ONLY CLINICAL HISTORY: ANNUAL F/U BILAT THAs. TECHNIQUE: 2D digital imaging was performed. Two images were obtained. AP and lateral views were ob tained. COMPARISON: CR XR HIP PELVIS ADULT BL from 03/04/2024 FINDINGS: BONES: There are stable post operative changes of a left total hip arthroplasty present. No fracture or dislocation. JOINTS: The orthopedic hardware is in good position. No evidence of hardware loosening. SOFT TISSUE: Normal. IMPRESSION: Stable left total hip arthroplasty. DATA REPOSITORY: RADIATION DOSE DELIVERED:
== END 2025-02-20 15:04 | disposition home or self-care (01) ==
LOC: DIORS 15:04
PROVIDERS: PCP Nurse Practitioner Adult Health; Referring Provider Nurse Practitioner Adult Health; Visit Provider Student in an Organized Health Care Education/Training Program
DX: Z47.1 Aftercare following joint replacement surgery (principal); Z96.643 Presence of artificial hip joint, bilateral
CPT/HCPCS: 99213; 73502

== ENCOUNTER 2025-08-25 16:07 | Outpatient (CLI) | payer MEDICARE, SELFPAY ==
--- NOTE | 2025-08-25 16:00 | RT.EKG_ITS ---
APPROVED REPORT Exam: Resting ECG Reason for Exam: low pulse rate Patient Location: O HR:60 bpm ECG Measurements Heart Rate 60 AXIS MT 129 P 51 QRSd 104 QRS -1 QT 429 T 50 QTc 429 Conclusion Sinus rhythm...normal P axis, V-rate 50- 99 Multiple ventricular premature complexes...V complexes w/ short R-R intervls Abnormal R-wave progression, early transition...QRS area>0 in V2
== END 2025-08-25 16:08 | disposition home or self-care (01) ==
LOC: DI.KIM 16:08
PROVIDERS: PCP Nurse Practitioner Adult Health; Visit Provider Nurse Practitioner Adult Health
DX: R00.1 Bradycardia, unspecified (principal)
CPT/HCPCS: 93010